=== PATIENT | female | born 1990 | race African-American/Black ===

== ENCOUNTER 2018-07-22 17:31 | Emergency (ER) | payer OTHER, SELFPAY ==
[2018-07-22 17:40] VITALS: BP 128/73; PULSE 66; RESP 13; TEMP 36.9; O2SAT 100
--- NOTE | 2018-07-22 18:05 | ED.ABDPAIN ---
HPI - Abdominal Pain <Francheska Addison PA-C - Last Filed: 07/22/18 22:21> General Chief Complaint: Abdominal Pain Stated Complaint: HAVING PAIN Time Seen by Provider: 07/22/18 18:05 Source: patient Mode of arrival: ambulatory Limitations: no limitations History of Present Illness HPI narrative: This 27-year-old female comes in due to persistent right upper quadrant and flank area pain for the last 6 months that has gradually gotten worse, especially in the last couple of weeks. Since then, it has been waking her up at night with intermittent stabbing and dull pain. Sometimes the pain will radiate into her shoulder and other times even can feel in the thigh. She states that pain is definitely worse after eating and seems better on an empty stomach, for example in the morning. She cannot think of any alleviating features or other exacerbating features. She has had some nausea with this recently, has not had vomiting. She has some intermittent constipation chronically, last bowel movement this morning. That has not been worse recently. She denies any urinary symptoms. She denies fever. She currently has her menses and denies possibility of . She denies any recent travel, exposures or diet changes. She has eaten and drank normal fluids today. She has tried ibuprofen without relief. She states that some point she had a pelvic ultrasound due to concern for possible ovarian problem, states no other testing has been done Related Data Previous Rx's Medication Instructions Recorded ibuprofen 800 mg PO Q8HR PRN 10 Days #30 tab 07/22/18 ondansetron [Zofran ODT] 4 mg PO Q6H PRN #10 tab 07/22/18 Allergies Allergy/AdvReac Type Severity Reaction Status Date / Time No Known Drug Allergies Allergy Verified 07/22/18 20:39 Review of Systems <Francheska Addison PA-C - Last Filed: 07/22/18 22:21> Review of Systems All systems reviewed & are unremarkable except as noted in HPI and below Exam <Francheska Addison PA-C - Last Filed: 07/22/18 22:21> Narrative Exam Narrative: GENERAL APPEARANCE: Patient sitting comfortably, in no distress. HEENT: PERRL, EOMI, no scleral icterus NECK: Supple LUNGS: Clear to auscultation bilaterally. HEART: Rate and rhythm regular, normal S1 and S2, no S3 or S4. I/ systolic ejection murmur heard only at the upper sternal borders with patient supine ABDOMEN: Soft, nondistended, bowel sounds present x 4 quadrants, no masses palpable, there is no splenomegaly. She is exquisitely tender over the right mid to upper quadrant with guarding, no rebound, positive Benson sign. No tenderness over the lower quadrants, left side, or suprapubic area EXTREMITIES: No edema, no cyanosis DERMATOLOGIC: No jaundice or exanthem NEUROLOGIC: Alert and oriented with normal speech and coordination Initial Vital Signs Initial Vital Signs: Vital Signs Temperature 98.4 F 07/22/18 17:40 Pulse Rate 66 07/22/18 17:40 Respiratory Rate 13 07/22/18 17:40 Blood Pressure 128/73 07/22/18 17:40 Pulse Oximetry 100 07/22/18 17:40 <Quentin Arellano DO - Last Filed: 07/23/18 04:10> Initial Vital Signs Initial Vital Signs: Vital Signs Temperature 98.4 F 07/22/18 17:40 Pulse Rate 66 07/22/18 17:40 Respiratory Rate 13 07/22/18 17:40 Blood Pressure 128/73 07/22/18 17:40 Pulse Oximetry 100 07/22/18 17:40 Course <Francheska Addison PA-C - Last Filed: 07/22/18 22:21> Additional Information: Patient does not have any acute findings on her lab work, however does have gallstone on ultrasound and worsening symptoms. She does not want pain or nausea medication and does not appear to need hospitalization this evening, but does need surgical follow-up. I spoke with Dr. Ansari who is implementation project manager and agreed that this is a reasonable plan, advised to have patient call her office 1st thing in the morning so she can be seen quickly for follow-up. Patient agreed to return in the interim if any acutely worsening symptoms and was given prescription for NSAID and Zofran. Also advised her that she has a very in the since having heart murmur that may have been present for a long time, and should follow up on her PCP for this to determine whether chronic or to do any further workup. Orders Ordered: Discontinued Medications Ibuprofen (Advil) 800 mg PO NOW ONE Stop: 07/22/18 19:50 Last Admin: 07/22/18 20:40 Dose: 800 mg Vital Signs - 8 hr 07/22/18 21:19 Pulse Rate 68 Respiratory Rate 16 Blood Pressure 124/79 Pulse Oximetry 100 <Quentin Arellano DO - Last Filed: 07/23/18 04:10> Orders Ordered: Discontinued Medications Ibuprofen (Advil) 800 mg PO NOW ONE Stop: 07/22/18 19:50 Last Admin: 07/22/18 20:40 Dose: 800 mg Vital Signs - 8 hr 07/22/18 21:19 Pulse Rate 68 Respiratory Rate 16 Blood Pressure 124/79 Pulse Oximetry 100 MDM - Abdominal Pain <Francheska Addison PA-C - Last Filed: 07/22/18 22:21> Lab Data Attestation: I reviewed the patient's lab results. Result diagrams: 07/22/18 18:50 07/22/18 18:50 Lab Results 07/22/18 07/22/18 07/22/18 Range/Units 18:50 18:50 19:05 WBC 7.0 (4.5-11.0) X10^3/uL RBC 4.14 (4.0-5.2) X10^6/uL Hgb 12.0 (12.0-16.0) g/dL Hct 35.8 L (36-46) % MCV 86.5 (80-100) fL MCH 29.0 (26-34) PG MCHC 33.5 (30-36) % RDW 13.0 (11.6-14.8) % Plt Count 359 (150-400) X10^3/uL Neut % (Auto) 34.2 L (50-75) % Lymph % (Auto) 57.1 H (25-40) % [place] % (Auto) 6.8 (3-14) % Eos % (Auto) 1.0 L (2-4) % Baso % (Auto) 0.9 (0-2) % Neut # (Auto) 2400 L (6532-6346) /uL Sodium 143 (137-145) mmol/L Potassium 3.7 (3.4-5.1) mmol/L Chloride 103 (98-107) mmol/L Carbon Dioxide 30 (22-32) mmol/L BUN 10 (7-17) mg/dL Creatinine 0.80 (0.52-1.04) mg/dL Estimated GFR > 60.0 (>60) mL/min BUN/Creatinine Ratio 12.5 (6-22) Glucose 73 (70-100) mg/dL Lactate 0.7 (0.7-2.1) mmol/L Calcium 9.2 (8.4-10.2) mg/dL Total Bilirubin 0.5 (0.2-1.3) mg/dL AST 19 (14-36) IU/L ALT 23 (9-52) IU/L Alkaline Phosphatase 69 (38-126) U/L Total Protein 7.2 (6.3-8.2) g/dL Albumin 4.1 (3.5-5.0) g/dL Globulin 3.1 (1.7-4.1) g/dL Albumin/Globulin Ratio 1.3 (1.0-2.8) Lipase 50 (23-300) U/L Point of care testing: Point of Care Testing Test Results Negative Urine Dip Bedside Urine Glucose Negative Bedside Urine Bilirubin - Negative Bedside Urine Ketone - Negative Urine Specific [place] 1.020 Bedside Urine Occult Blood +++ Bedside Urine pH 6.0 Bedside Urine Protein - Negative Bedside Urine Urobilinogen - Negative Bedside Urine Nitrite - Negative Bedside Urine Leukocytes - Negative Esterase Imaging Data US - abdomen: Radiologist's impression: [place] [address] Ultrasound Report Signed Patient: RINKU SURESH EMR#: [id number] : 1990Acct:[id number] Age/Sex: 27 / FDate of Service: 07/22/18 Loc: ED Accession Number: [id number] Procedure: US abdomen complete Ordering Provider: Francheska Addison P.A-C PROCEDURE: US ABDOMEN COMPLETE INDICATIONS: RIGHT FLANK/UPPER QUADRANT PAIN TECHNIQUE: Real-time scanning was performed of the abdominal and retroperitoneal organs, with image documentation. COMPARISON: None. FINDINGS: Liver: Liver is normal in size and homogeneous in echotexture. Gallbladder: 1.4 cm mobile gallstone noted in the gallbladder lumen. Gallbladder wall measures 2 mm. No pericholecystic fluid. No sonographic Benson sign. Biliary ducts: Intrahepatic bile ducts are non-dilated. Extrahepatic bile duct caliber measures 5.1 mm. Normal is 6-7 mm or less in diameter, or 10 mm or less post-cholecystectomy. Pancreas: Visualized portions of the pancreas are sonographically normal. Spleen: Spleen is normal in size and homogeneous in echotexture. Kidneys: Kidneys are normal in size and echotexture. Right kidney measures 11.5 cm long; left kidney measures 11.1 cm long. No hydronephrosis or nephrolithiasis. No solid masses. Aorta: Visualized aorta is normal in caliber at less than 3 cm. Iliacs: Proximal common iliac arteries are normal in caliber at less than 2.5 cm. IVC: Intrahepatic inferior vena cava is patent. Miscellaneous: No free abdominal fluid. IMPRESSION: Cholelithiasis with positive sonographic Benson sign and absence of gallbladder wall thickening or pericholecystic fluid. Early manifestation of cholecystitis cannot be excluded. Dictated by: Serene Hines MD, PhD on 07/22/2018 at 19:31 Approved by: Serene Hines MD, PhD on 07/22/2018 at 19:32 <Quentin Arellano DO - Last Filed: 07/23/18 04:10> Lab Data Lab Results 07/22/18 07/22/18 07/22/18 Range/Units 18:50 18:50 19:05 WBC 7.0 (4.5-11.0) X10^3/uL RBC 4.14 (4.0-5.2) X10^6/uL Hgb 12.0 (12.0-16.0) g/dL Hct 35.8 L (36-46) % MCV 86.5 (80-100) fL MCH 29.0 (26-34) PG MCHC 33.5 (30-36) % RDW 13.0 (11.6-14.8) % Plt Count 359 (150-400) X10^3/uL Neut % (Auto) 34.2 L (50-75) % Lymph % (Auto) 57.1 H (25-40) % [place] % (Auto) 6.8 (3-14) % Eos % (Auto) 1.0 L (2-4) % Baso % (Auto) 0.9 (0-2) % Neut # (Auto) 2400 L (6890-5286) /uL Sodium 143 (137-145) mmol/L Potassium 3.7 (3.4-5.1) mmol/L Chloride 103 (98-107) mmol/L Carbon Dioxide 30 (22-32) mmol/L BUN 10 (7-17) mg/dL Creatinine 0.80 (0.52-1.04) mg/dL Estimated GFR > 60.0 (>60) mL/min BUN/Creatinine Ratio 12.5 (6-22) Glucose 73 (70-100) mg/dL Lactate 0.7 (0.7-2.1) mmol/L Calcium 9.2 (8.4-10.2) mg/dL Total Bilirubin 0.5 (0.2-1.3) mg/dL AST 19 (14-36) IU/L ALT 23 (9-52) IU/L Alkaline Phosphatase 69 (38-126) U/L Total Protein 7.2 (6.3-8.2) g/dL Albumin 4.1 (3.5-5.0) g/dL Globulin 3.1 (1.7-4.1) g/dL Albumin/Globulin Ratio 1.3 (1.0-2.8) Lipase 50 (23-300) U/L Point of care testing: Point of Care Testing Test Results Negative Urine Dip Bedside Urine Glucose Negative Bedside Urine Bilirubin - Negative Bedside Urine Ketone - Negative Urine Specific [place] 1.020 Bedside Urine Occult Blood +++ Bedside Urine pH 6.0 Bedside Urine Protein - Negative Bedside Urine Urobilinogen - Negative Bedside Urine Nitrite - Negative Bedside Urine Leukocytes - Negative Esterase Discharge Plan Departure Patient Disposition: Home Clinical Impression: Gallstone Discharge Date/Time: 07/22/18 21:19 Interventions: ED Discharge Assessment Last Done: 07/22/18 21:19 Instructions: DI for Gallstones Activity Restrictions/Additional Instructions: You should return immediately as we talked about if you have acutely worsening symptoms, or new symptoms such as protracted vomiting. I have sent in prescriptions for ibuprofen for pain as well as a medication called Zofran for nausea. Please take these as needed. Please drink clear fluids, and eat small, bland meals more frequently. Avoid greasy and fatty foods altogether. I spoke with our implementation project manager surgeon Dr. Ansari regarding your symptoms and ultrasound findings and she agrees that you can be seen there as an outpatient and then they can get you set up for surgery right away if needed. Please call her office at the number on this paperwork 1st thing in the morning. Let them know that you were seen in the emergency room this evening and that we spoke with her and that she advised you to call and be seen right away to evaluate for surgery. Prescriptions: New ibuprofen 800 mg tablet 800 mg PO Q8HR PRN (Reason: Abdominal Pain) 10 Days Qty: 30 RF: 0 ondansetron [Zofran ODT] 4 mg tablet,disintegrating 4 mg PO Q6H PRN (Reason: Nausea) Qty: 10 RF: 0 Referrals: [facility] [Provider Group] Manju Ansari MD [Physician] - <Quentin Arellano DO - Last Filed: 07/23/18 04:10> Cosign ED Attending Solaature Attestation: I was immediately available in the department for consultation. Documentation has been reviewed. I agree with assessment and plan.
--- NOTE | 2018-07-22 18:23 | ED_ITS ---
HPI - Abdominal Pain <Francheska Addison PA-C - Last Filed: 07/22/18 22:21> General Chief Complaint: Abdominal Pain Stated Complaint: HAVING PAIN Time Seen by Provider: 07/22/18 18:05 Source: patient Mode of arrival: ambulatory Limitations: no limitations History of Present Illness HPI narrative: This 27-year-old female comes in due to persistent right upper quadrant and flank area pain for the last 6 months that has gradually gotten worse, especially in the last couple of weeks. Since then, it has been waking her up at night with intermittent stabbing and dull pain. Sometimes the pain will radiate into her shoulder and other times even can feel in the thigh. She states that pain is definitely worse after eating and seems better on an empty stomach, for example in the morning. She cannot think of any alleviating features or other exacerbating features. She has had some nausea with this recently, has not had vomiting. She has some intermittent constipation chronically, last bowel movement this morning. That has not been worse recently. She denies any urinary symptoms. She denies fever. She currently has her menses and denies possibility of . She denies any recent travel, exposures or diet changes. She has eaten and drank normal fluids today. She has tried ibuprofen without relief. She states that some point she had a pelvic ultrasound due to concern for possible ovarian problem, states no other testing has been done Related Data Previous Rx's Medication Instructions Recorded ibuprofen 800 mg PO Q8HR PRN 10 Days #30 tab 07/22/18 ondansetron [Zofran ODT] 4 mg PO Q6H PRN #10 tab 07/22/18 Allergies Allergy/AdvReac Type Severity Reaction Status Date / Time No Known Drug Allergies Allergy Verified 07/22/18 20:39 Review of Systems <Francheska Addison PA-C - Last Filed: 07/22/18 22:21> Review of Systems All systems reviewed & are unremarkable except as noted in HPI and below Exam <Francheska Addison PA-C - Last Filed: 07/22/18 22:21> Narrative Exam Narrative: GENERAL APPEARANCE: Patient sitting comfortably, in no distress. HEENT: PERRL, EOMI, no scleral icterus NECK: Supple LUNGS: Clear to auscultation bilaterally. HEART: Rate and rhythm regular, normal S1 and S2, no S3 or S4. I/ systolic ejection murmur heard only at the upper sternal borders with patient supine ABDOMEN: Soft, nondistended, bowel sounds present x 4 quadrants, no masses palpable, there is no splenomegaly. She is exquisitely tender over the right mid to upper quadrant with guarding, no rebound, positive Benson sign. No tenderness over the lower quadrants, left side, or suprapubic area EXTREMITIES: No edema, no cyanosis DERMATOLOGIC: No jaundice or exanthem NEUROLOGIC: Alert and oriented with normal speech and coordination Initial Vital Signs Initial Vital Signs: Vital Signs Temperature 98.4 F 07/22/18 17:40 Pulse Rate 66 07/22/18 17:40 Respiratory Rate 13 07/22/18 17:40 Blood Pressure 128/73 07/22/18 17:40 Pulse Oximetry 100 07/22/18 17:40 <Quentin Arellano DO - Last Filed: 07/23/18 04:10> Initial Vital Signs Initial Vital Signs: Vital Signs Temperature 98.4 F 07/22/18 17:40 Pulse Rate 66 07/22/18 17:40 Respiratory Rate 13 07/22/18 17:40 Blood Pressure 128/73 07/22/18 17:40 Pulse Oximetry 100 07/22/18 17:40 Course <Francheska Addison PA-C - Last Filed: 07/22/18 22:21> Additional Information: Patient does not have any acute findings on her lab work , however does have gallstone on ultrasound and worsening symptoms. She does not want pain or nausea medication and does not appear to need hospitalization this evening, but does need surgical follow-up. I spoke with Dr. Ansari who is patient ombudsperson and agreed that this is a reasonable plan, advised to have patient call her office 1st thing in the morning so she can be seen quickly for follow-up. Patient agreed to return in the interim if any acutely worsening symptoms and was given prescription for NSAID and Zofran. Also advised her that she has a very in the since having heart murmur that may have been present for a long time , and should follow up on her PCP for this to determine whether chronic or to do any further workup. Orders Ordered: Discontinued Medications Ibuprofen (Advil) 800 mg PO NOW ONE Stop: 07/22/18 19:50 Last Admin: 07/22/18 20:40 Dose: 800 mg Vital Signs - 8 hr 07/22/18 21:19 Pulse Rate 68 Respiratory Rate 16 Blood Pressure 124/79 Pulse Oximetry 100 <Quentin Arellano DO - Last Filed: 07/23/18 04:10> Orders Ordered: Discontinued Medications Ibuprofen (Advil) 800 mg PO NOW ONE Stop: 07/22/18 19:50 Last Admin: 07/22/18 20:40 Dose: 800 mg Vital Signs - 8 hr 07/22/18 21:19 Pulse Rate 68 Respiratory Rate 16 Blood Pressure 124/79 Pulse Oximetry 100 MDM - Abdominal Pain <Francheska Addison PA-C - Last Filed: 07/22/18 22:21> Lab Data Attestation: I reviewed the patient's lab results. Result diagrams: 07/22/18 18:50 07/22/18 18:50 Lab Results 07/22/18 07/22/18 07/22/18 Range/Units 18:50 18:50 19:05 WBC 7.0 (4.5-11.0) X10^3/uL RBC 4.14 (4.0-5.2) X10^6/uL Hgb 12.0 (12.0-16.0) g/dL Hct 35.8 L (36-46) % MCV 86.5 (80-100) fL MCH 29.0 (26-34) PG MCHC 33.5 (30-36) % RDW 13.0 (11.6-14.8) % Plt Count 359 (150-400) X10^3/uL Neut % (Auto) 34.2 L (50-75) % Lymph % (Auto) 57.1 H (25-40) % [place] % (Auto) 6.8 (3-14) % Eos % (Auto) 1.0 L (2-4) % Baso % (Auto) 0.9 (0-2) % Neut # (Auto) 2400 L (3986-7582) /uL Sodium 143 (137-145) mmol/L Potassium 3.7 (3.4-5.1) mmol/L Chloride 103 (98-107) mmol/L Carbon Dioxide 30 (22-32) mmol/L BUN 10 (7-17) mg/dL Creatinine 0.80 (0.52-1.04) mg/dL Estimated GFR > 60.0 (>60) mL/min BUN/Creatinine Ratio 12.5 (6-22) Glucose 73 (70-100) mg/dL Lactate 0.7 (0.7-2.1) mmol/L Calcium 9.2 (8.4-10.2) mg/dL Total Bilirubin 0.5 (0.2-1.3) mg/dL AST 19 (14-36) IU/L ALT 23 (9-52) IU/L Alkaline Phosphatase 69 (38-126) U/L Total Protein 7.2 (6.3-8.2) g/dL Albumin 4.1 (3.5-5.0) g/dL Globulin 3.1 (1.7-4.1) g/dL Albumin/Globulin Ratio 1.3 (1.0-2.8) Lipase 50 (23-300) U/L Point of care testing: Point of Care Testing Test Results Negative Urine Dip Bedside Urine Glucose Negative Bedside Urine Bilirubin - Negative Bedside Urine Ketone - Negative Urine Specific [place] 1.020 Bedside Urine Occult Blood +++ Bedside Urine pH 6.0 Bedside Urine Protein - Negative Bedside Urine Urobilinogen - Negative Bedside Urine Nitrite - Negative Bedside Urine Leukocytes - Negative Esterase Imaging Data US - abdomen: Radiologist's impression: [place] [address] Ultrasound Report Signed Patient: RINKU SURESH EMR#: [id number] : 1990Acct:[id number] Age/Sex: 27 / FDate of Service: 07/22/18 Loc: ED Accession Number: [id number] Procedure: US abdomen complete Ordering Provider: Francheska Addison P.A-C PROCEDURE: US ABDOMEN COMPLETE INDICATIONS: RIGHT FLANK/UPPER QUADRANT PAIN TECHNIQUE: Real-time scanning was performed of the abdominal and retroperitoneal organs, with image documentation. COMPARISON: None. FINDINGS: Liver: Liver is normal in size and homogeneous in echotexture. Gallbladder: 1.4 cm mobile gallstone noted in the gallbladder lumen. Gallbladder wall measures 2 mm. No pericholecystic fluid. No sonographic Benson sign. Biliary ducts: Intrahepatic bile ducts are non-dilated. Extrahepatic bile duct caliber measures 5.1 mm. Normal is 6-7 mm or less in diameter, or 10 mm or less post-cholecystectomy. Pancreas: Visualized portions of the pancreas are sonographically normal. Spleen: Spleen is normal in size and homogeneous in echotexture. Kidneys: Kidneys are normal in size and echotexture. Right kidney measures 11.5 cm long; left kidney measures 11.1 cm long. No hydronephrosis or nephrolithiasis. No solid masses. Aorta: Visualized aorta is normal in caliber at less than 3 cm. Iliacs: Proximal common iliac arteries are normal in caliber at less than 2.5 cm. IVC: Intrahepatic inferior vena cava is patent. Miscellaneous: No free abdominal fluid. IMPRESSION: Cholelithiasis with positive sonographic Benson sign and absence of gallbladder wall thickening or pericholecystic fluid. Early manifestation of cholecystitis cannot be excluded. Dictated by: Serene Hines MD, PhD on 07/22/2018 at 19:31 Approved by: Serene Hines MD, PhD on 07/22/2018 at 19:32 <Quentin Arellano DO - Last Filed: 07/23/18 04:10> Lab Data Lab Results 07/22/18 07/22/18 07/22/18 Range/Units 18:50 18:50 19:05 WBC 7.0 (4.5-11.0) X10^3/uL RBC 4.14 (4.0-5.2) X10^6/uL Hgb 12.0 (12.0-16.0) g/dL Hct 35.8 L (36-46) % MCV 86.5 (80-100) fL MCH 29.0 (26-34) PG MCHC 33.5 (30-36) % RDW 13.0 (11.6-14.8) % Plt Count 359 (150-400) X10^3/uL Neut % (Auto) 34.2 L (50-75) % Lymph % (Auto) 57.1 H (25-40) % [place] % (Auto) 6.8 (3-14) % Eos % (Auto) 1.0 L (2-4) % Baso % (Auto) 0.9 (0-2) % Neut # (Auto) 2400 L (1382-7292) /uL Sodium 143 (137-145) mmol/L Potassium 3.7 (3.4-5.1) mmol/L Chloride 103 (98-107) mmol/L Carbon Dioxide 30 (22-32) mmol/L BUN 10 (7-17) mg/dL Creatinine 0.80 (0.52-1.04) mg/dL Estimated GFR > 60.0 (>60) mL/min BUN/Creatinine Ratio 12.5 (6-22) Glucose 73 (70-100) mg/dL Lactate 0.7 (0.7-2.1) mmol/L Calcium 9.2 (8.4-10.2) mg/dL Total Bilirubin 0.5 (0.2-1.3) mg/dL AST 19 (14-36) IU/L ALT 23 (9-52) IU/L Alkaline Phosphatase 69 (38-126) U/L Total Protein 7.2 (6.3-8.2) g/dL Albumin 4.1 (3.5-5.0) g/dL Globulin 3.1 (1.7-4.1) g/dL Albumin/Globulin Ratio 1.3 (1.0-2.8) Lipase 50 (23-300) U/L Point of care testing: Point of Care Testing Test Results Negative Urine Dip Bedside Urine Glucose Negative Bedside Urine Bilirubin - Negative Bedside Urine Ketone - Negative Urine Specific [place] 1.020 Bedside Urine Occult Blood +++ Bedside Urine pH 6.0 Bedside Urine Protein - Negative Bedside Urine Urobilinogen - Negative Bedside Urine Nitrite - Negative Bedside Urine Leukocytes - Negative Esterase Discharge Plan Departure Patient Disposition: Home Clinical Impression: Gallstone Discharge Date/Time: 07/22/18 21:19 Interventions: ED Discharge Assessment Last Done: 07/22/18 21:19 Instructions: DI for Gallstones Activity Restrictions/Additional Instructions: You should return immediately as we talked about if you have acutely worsening symptoms, or new symptoms such as protracted vomiting. I have sent in prescriptions for ibuprofen for pain as well as a medication called Zofran for nausea. Please take these as needed. Please drink clear fluids, and eat small , bland meals more frequently. Avoid greasy and fatty foods altogether. I spoke with our patient ombudsperson surgeon Dr. Ansari regarding your symptoms and ultrasound findings and she agrees that you can be seen there as an outpatient and then they can get you set up for surgery right away if needed. Please call her office at the number on this paperwork 1st thing in the morning. Let them know that you were seen in the emergency room this evening and that we spoke with her and that she advised you to call and be seen right away to evaluate for surgery. Prescriptions: New ibuprofen 800 mg tablet 800 mg PO Q8HR PRN (Reason: Abdominal Pain) 10 Days Qty: 30 RF: 0 ondansetron [Zofran ODT] 4 mg tablet,disintegrating 4 mg PO Q6H PRN (Reason: Nausea) Qty: 10 RF: 0 Referrals: [facility] [Provider Group] Manju Ansari MD [Physician] - <Quentin Arellano DO - Last Filed: 07/23/18 04:10> Cosign ED Attending Solaature Attestation: I was immediately available in the department for consultation. Documentation has been reviewed. I agree with assessment and plan.
--- NOTE | 2018-07-22 18:39 | DI.US.S_ITS ---
PROCEDURE: US ABDOMEN COMPLETE INDICATIONS: RIGHT FLANK/UPPER QUADRANT PAIN TECHNIQUE: Real-time scanning was performed of the abdominal and retroperitoneal organs, with image documentation. COMPARISON: None. FINDINGS: Liver: Liver is normal in size and homogeneous in echotexture. Gallbladder: 1.4 cm mobile gallstone noted in the gallbladder lumen. Gallbladder wall measures 2 mm. No pericholecystic fluid. No sonographic Benson sign. Biliary ducts: Intrahepatic bile ducts are non-dilated. Extrahepatic bile duct caliber measures 5.1 mm. Normal is 6-7 mm or less in diameter, or 10 mm or less post-cholecystectomy. Pancreas: Visualized portions of the pancreas are sonographically normal. Spleen: Spleen is normal in size and homogeneous in echotexture. Kidneys: Kidneys are normal in size and echotexture. Right kidney measures 11.5 cm long; left kidney measures 11.1 cm long. No hydronephrosis or nephrolithiasis. No solid masses. Aorta: Visualized aorta is normal in caliber at less than 3 cm. Iliacs: Proximal common iliac arteries are normal in caliber at less than 2.5 cm. IVC: Intrahepatic inferior vena cava is patent. Miscellaneous: No free abdominal fluid. IMPRESSION: Cholelithiasis with positive sonographic Benson sign and absence of gallbladder wall thickening or pericholecystic fluid. Early manifestation of cholecystitis cannot be excluded. Dictated by: Serene Hines MD, PhD on 07/22/2018 at 19:31 Approved by: Serene Hines MD, PhD on 07/22/2018 at 19:32
[2018-07-22 18:58] VITALS: BP 131/71; PULSE 54; RESP 15; O2SAT 100
[2018-07-22 19:05] LABS: Add Manual Diff / Slide Review NO; Basophils Percent Auto 0.9 % (0-2); Hematocrit 35.8 % (36-46); Lymphocytes Percent Auto 57.1 % (25-40); Mean Corpuscular HGB Conc 33.5 % (30-36); Mean Corpuscular Volume 86.5 fL (80-100); Monocytes Percent Auto 6.8 % (3-14); Neutrophils Absolute Auto 2400 /uL (3000-5900); Neutrophils Percent Auto 34.2 % (50-75); Platelet Count 359 X10^3/uL (150-400); Red Blood Cell Count 4.14 X10^6/uL (4.0-5.2)
[2018-07-22 19:16] LABS: Alanine Aminotransferase 23 IU/L (9-52); Albumin 4.1 g/dL (3.5-5.0); Albumin Globulin Ratio 1.3 (1.0-2.8); Alkaline Phosphatase 69 U/L (38-126); Aspartate Aminotransferase 19 IU/L (14-36); BUN Creatinine Ratio 12.5 (6-22); Bilirubin Total 0.5 mg/dL (0.2-1.3); Blood Urea Nitrogen 10 mg/dL (7-17); Calcium 9.2 mg/dL (8.4-10.2); Carbon Dioxide 30 mmol/L (22-32); Chloride 103 mmol/L (98-107); Estimated Glomerular Filt Rate > 60.0 mL/min (>60); Globulin 3.1 g/dL (1.7-4.1); Glucose 73 mg/dL (70-100); HEMOLYSIS < 15 (0-50); Lipase 50 U/L (23-300); Potassium 3.7 mmol/L (3.4-5.1); Sodium 143 mmol/L (137-145); Total Protein 7.2 g/dL (6.3-8.2)
[2018-07-22 19:26] LABS: Lactate (Lactic Acid) 0.7 mmol/L (0.7-2.1)
[2018-07-22] MEDS: IBUPROFEN 400 MG TABLET 800 MG PO (20:40)
[2018-07-22 21:19] VITALS: BP 124/79; PULSE 68; RESP 16; O2SAT 100
== END 2018-07-22 21:19 | disposition home or self-care (01) ==
PROVIDERS: Emergency Provider Internal Medicine
DX: K80.20 Calculus of gallbladder without cholecystitis without obstruction (principal)
CPT/HCPCS: 36591; 76700; 80053; 81003; 81025; 83605; 83690; 85025; 99282; 99284

== ENCOUNTER 2018-07-24 12:04 | Day surgery (SDC) | payer OTHER, SELFPAY ==
[2018-07-24] VITALS (13 sets, daily range): BP systolic 100–131; BP diastolic 56–80; PULSE 52–84; RESP 12–18; TEMP 36.3–36.6; O2SAT 94–100; BMI 29.7
--- NOTE | 2018-07-24 | PATH_ITS ---
[facility] Accession Number: [id number] . 01 Material submitted: . GALLBLADDER . 02 Diagnosis: Gallbladder, Cholecystectomy: Gallbladder with cholelithiasis. No evidence of dysplasia or malignancy. MRV/07/28/2018 . 02 Electronically signed: . Allison Guevara MD, Pathologist NPI- [id number] . 01 Gross description: . Received in formalin, labeled gallbladder, is an intact gallbladder (length-8.6 cm, diameter-3.2 cm) with green smooth and shiny serosa and a patent cystic duct. No lymph nodes are identified. The lumen contains dark green viscous bile and one paniagua yellow solid firm oblong calculus (1.2 x 0.8 x 0.6 cm) with a clear crystalline cut surface. The mucosa is green and flat. The wall is up to 0.1 cm thick. No nodules, masses or lesions are identified. Section code: (A1) cystic duct resection margin and two serial sections from the body; (A2) two longitudinal sections from the fundus. ([id number]) /[facility] . 02 Pathologist provided ICD-10: K80.70 . 02 CPT . 077474 Specimen Comment: A duplicate report has been generated due to demographic updates. Performed at: 01 [facility] [address], [place], [place] [id number] MD Dorian Guidry MD Phone: [phone] Performed at: [address] [facility] [address] [place], [place] [id number] MD Uriel Garcia MD Phone: [phone]
--- NOTE | 2018-07-24 12:55 | PM.PREOP ---
Pre-operative Note Interval Note Pre-op Check: Yes History & Physical Reviewed by Physician and Yes Exam Performed Changes: Yes H&P completed within 30 days and has changed as indicated here:: No mesh was used for her umbilical hernia repair at [facility]
[2018-07-24] MEDS: CEFAZOLIN 2 GM/100 ML FROZ.PIGGY IV (13:30)
--- NOTE | 2018-07-24 13:46 | SUR.OPER ---
Supine on padded OR bed, head on pillow, arms secured on padded arm boards at <90 degrees abduction, legs uncrossed, safety belt at thigh, tape over blanket over lower legs.
[2018-07-24] MEDS: BUPIVACAINE 0.5% (PF) VIAL 30 ML INJ (14:00)
--- NOTE | 2018-07-24 15:13 | PM.OP.1 ---
Operative Date/Time/Diagnoses Date of procedure: 07/24/18 Time of procedure: 12:13 Pre-op diagnosis: Cholelithiasis cholecystitis Post-op diagnosis: same Procedure & Clinicians Procedure: laparoscopic cholecystectomy. Same procedure as scheduled: No ( Attempted cholangiogram but duct was too small to catheterize) Indications: symptomatic gallbladder disease Surgeon: Nicolás Francis Click Yes if Unassisted: Yes Anesthesia Type: General Operative Notes Findings: mild inflammation of the gallbladder. Stones in the gallbladder. Duct was too small to cannulate. Closure Type: primary Specimen(s): other ( Gallbladder) Estimated Blood Loss (mL): 10 Blood products transfused: none Procedure in detail: The patient was placed supine on the operating room table and underwent general endotracheal anesthesia. There prepped and draped in the usual fashion. Local anesthetic was infiltrated beneath the umbilicus and an incision made in the infraumbilical fold through an old scar. It was carried down to the level of the peritoneum which was opened under direct vision. Stay suture of 0 Polysorb were placed in the fascia. An Kirk cannula was inserted and the abdomen was insufflated. The patient was repositioned and local anesthetic was infiltrated again beneath the right costal margin and 3 small 5 mm ports were inserted. The gallbladder was identified and grasped and elevated. dissection was began near its end. A ductal structure singular nature leading to the gallbladder and appearing to go to the common bile duct was identified and from surrounding structures. Clip was placed at its junction with the gallbladder and then made a skip in the duct. The opening was tiny. I attempted to cannulated with the cholangiocatheter and it was just too small. Three clips were placed on the duct and was divided leaving those 3 on the patient. I was no where near the common bile duct with these 3 clips. Further dissection revealed the artery going to the gallbladder which was from surrounding structures. Three clips were placed across it and it was divided leaving 2 in the patient. The gallbladder was then dissected from its bed in the liver and detached. It was removed without difficulty through the umbilical port. The right upper quadrant was irrigated and suctioned free of fluid. There was no bile leakage and no bleeding. The patient had some minimal adhesions of omentum to the anterior abdominal wall near the umbilical port and in the pelvis and these were taken down using cautery and scissors. Fluid was suctioned from the pelvis ports were all removed. Two 0 Maxon sutures were used to close the fascia at the umbilicus and the 1 stay stitch of 0 Polysorb was tied. The wounds were all irrigated and 4 0 Vicryl subcuticular stitches were used to close the skin. Mastisol Steri-Strips Band-Aids were applied. Patient was awakened extubated and taken to the recovery room good condition. Complications: none Condition: stable Disposition: PACU Plan for aftercare: Follow up with the office
[2018-07-24] MEDS: fentaNYL 100 MCG/2 ML INJ 50 MCG IV ×2 (15:25→15:30)
[2018-07-24] MEDS: HYDROMORPHONE 2 MG INJ 0.5 MG IV ×2 (15:50→15:55)
[2018-07-24] MEDS: LACTATED RINGERS 1,000 ML 100 ML IV (16:05)
[2018-07-24] MEDS: KETOROLAC 30 MG/ML VIAL IV (16:24)
[2018-07-24] MEDS: HYDROCODONE/ACET 5/325 TABLET 1 TAB PO (16:28)
== END 2018-07-24 17:05 ==
PROVIDERS: Visit Provider Specialist
PROC: 0FT44ZZ Resection of Gallbladder, Percutaneous Endoscopic Approach (ICD-10-PCS; CPT 47562; principal; 2018-07-24 13:15)
DX: K80.12 Calculus of gallbladder with acute and chronic cholecystitis without obstruction (principal)
CPT/HCPCS: 47562; 88304; J0690; J1100; J1170; J1885; J2405; J2704; J3010

== ENCOUNTER 2018-10-03 18:00 | Emergency (ER) | payer OTHER, SELFPAY ==
[2018-10-03 18:04] VITALS: BP 140/93; PULSE 60; RESP 12; TEMP 36.7; O2SAT 100
--- NOTE | 2018-10-03 18:23 | ED.URI ---
HPI - URI/Sore Throat General Chief Complaint: Upper Respiratory Symptoms Stated Complaint: feels like something is stuck in throat Time Seen by Provider: 10/03/18 18:16 Source: patient Mode of arrival: ambulatory Limitations: no limitations History of Present Illness HPI Narrative: Otherwise healthy 27-year-old female here for evaluation a sore throat, problems speaking, sinus congestion. No fevers. No problems breathing. States has been going on for the past day or so. She has not tried anything for prior to arrival. Related Data Allergies Allergy/AdvReac Type Severity Reaction Status Date / Time No Known Drug Allergies Allergy Verified 07/24/18 13:17 Review of Systems Constitutional Denies fever(s) and Reports headache(s) Eyes Denies change in vision and Denies diplopia ENT Ears, Nose, Mouth, and Throat: Denies vertigo, Denies dizziness, Denies dry mouth, Denies facial pain, Reports headache(s), Denies hearing loss, Denies lip swelling, Reports neck pain, Denies disequilibrium, Reports post nasal drip, Reports sore throat, Denies throat swelling and Denies tongue swelling Cardiovascular Denies chest pain and Denies dyspnea Respiratory Denies cough and Denies dyspnea Gastrointestinal Gastrointestinal: Denies nausea and Denies vomiting Genitourinary Denies dysuria Musculoskeletal Reports neck pain Integumentary/Breasts Denies rash Neurologic Denies vertigo, Denies dizziness, Reports headache(s) and Denies disequilibrium Allergic/Immunologic Denies lip swelling, Denies throat swelling and Denies tongue swelling PFSH Medical History Healthy adult (Acute) Surgical History History of (Chronic) History of umbilical hernia repair (Chronic) Family History Father Hypertension Mother Gallstones Grandmother Stroke Social History marital status: household members: spouse, family and children occupational status: employed Smoking Status: Never smoker Exam Initial Vital Signs Initial Vital Signs: Vital Signs Temperature 98.0 F 10/03/18 18:04 Pulse Rate 60 10/03/18 18:04 Respiratory Rate 12 10/03/18 18:04 Blood Pressure 140/93 H 10/03/18 18:04 Pulse Oximetry 100 10/03/18 18:04 Const General: cooperative, well developed, well groomed and No acute distress Orientation: alert and awake HENMT Head: normal to inspection and normocephalic Ears: other (Tympanic membrane bulging bilateral without erythema) Mouth: oral mucosae normal, tongue normal, oropharynx normal and moist mucous membranes Teeth and gingiva: dentition normal Throat: posterior oropharynx normal, tonsils normal, uvula midline and uvula not displaced Neck Lymphatic: lymphadenopathy (Bilateral anterior and right-sided posterior cervical) Resp Effort & Inspection: normal respiratory effort Auscultation: clear to auscultation bilaterally Cardio Rate: regular rate Rhythm: regular rhythm Skin Lesions: no lesions Rashes: no rashes Neuro General: alert, awake and oriented x3 Extrem General: normal to inspection and capillary refill normal Psych Appearance: grossly normal and well kempt Course Orders Ordered: Discontinued Medications Dexamethasone (Decadron) 10 mg IV NOW ONE Stop: 10/03/18 18:42 Last Admin: 10/03/18 18:57 Dose: 10 mg Sodium Chloride (Normal Saline 0.9%) 1,000 mls @ 1,000 mls/hr IV BOLUS ONE Stop: 10/03/18 19:40 Last Infusion: 10/03/18 20:23 Dose: 1,000 mls/hr Admin: 10/03/18 18:58 Dose: 1,000 mls/hr Vital Signs - 8 hr 10/03/18 18:04 10/03/18 20:40 Temperature 98.0 F Pulse Rate 60 61 Respiratory Rate 12 14 Blood Pressure 140/93 H 138/90 Pulse Oximetry 100 99 MDM - URI/Sore Throat Lab Data Lab Results 10/03/18 Range/Units Unknown Monoscreen Negative (Negative) Point of Care Testing Rapid Strep A Negative MDM Narrative Medical decision making narrative: Patient not in any respiratory distress. Is tolerating oral secretions. Strep and mono test were negative. Does have sinus congestion with bulging tympanic membranes bilaterally consistent with upper respiratory infection. I do suspect a she has a postnasal drip component also laryngitis. No indication for antibiotics. She stated that she was feeling better after the steroids of fluids here in the ER. Will hold on further workup for now. She was given return precautions. She expressed understanding and agreement with plan. Discharge Plan Departure Patient Disposition: Home Clinical Impression: Upper respiratory infection, Pharyngitis, Laryngitis Discharge Date/Time: 10/03/18 20:41 Interventions: ED Discharge Assessment Last Done: 10/03/18 20:40 Instructions: Sore Throat, DI for Laryngitis Activity Restrictions/Additional Instructions: Recommend you start taking an [id number] antihistamine such as Claritin or Luly or Zyrtec. Make sure you increase your fluid intake. Call your primary care doctor for follow-up. Return to the emergency department for any new or worsening symptoms
[2018-10-03] MEDS: DEXAMETHASONE 10 MG/ML VIAL IV (18:57)
[2018-10-03] MEDS: SODIUM CHLORIDE 0.9% 1,000 ML 1000 ML IV (18:58)
[2018-10-03 19:16] LABS: Monotest Negative (Negative)
[2018-10-03 20:40] VITALS: BP 138/90; PULSE 61; RESP 14; O2SAT 99
== END 2018-10-03 20:41 | disposition home or self-care (01) ==
PROVIDERS: Emergency Provider Emergency Medicine
DX: J06.9 Acute upper respiratory infection, unspecified (principal); J02.9 Acute pharyngitis, unspecified; J04.0 Acute laryngitis
CPT/HCPCS: 36591; 86318; 87880; 96361; 96374; 99283; 99284; J1100

== ENCOUNTER 2019-03-10 08:01 | Observation (INO) | payer OTHER, SELFPAY ==
[2019-03-10] VITALS (22 sets, daily range): BP systolic 97–135; BP diastolic 44–70; PULSE 53–75; RESP 15–22; TEMP 36.4–37.4; O2SAT 98–100; BMI 29.0
--- NOTE | 2019-03-10 | PATH_ITS ---
[facility] Accession Number: [id number] . 01 Material submitted: . appendix - APPENDIX . 02 Diagnosis: Appendix, Laparoscopic Appendectomy: Appendix with obliteration of the tip and neutrophils present within the lamina propria, suggestive of evolving appendicitis. Negative for atypia or malignancy. MRV/03/13/2019 . 02 Electronically signed: . Veronica Altamirano MD, Pathologist NPI- [id number] . 01 Gross description: . Received in formalin, labeled appendix, is an intact appendix (length-6.5 cm, diameter-1.0 cm) with pale cannon-olson smooth shiny serosa and attached mesoappendix (up to 1.8 cm thick). The resection margin is received stapled. The lumen contains pale olson solid soft material. The wall is up to 0.5 cm thick. No nodules, masses or lesions are identified. The resection margin is inked black. Section code: (A1-A4) appendix, serially sectioned and entirely submitted proximal to distal with a resection margin en face and the tip bivalved. ([id number]) /[facility]V . 02 Pathologist provided ICD-10: K35.80 . 02 CPT . 618199 Performed at: 01 [facility] [address], [place], [place] [id number] MD Dorian Guidry MD Phone: [phone] Performed at: 02 [facility] [address] [place], [place] [id number] MD Allison Guevara MD Phone: [phone]
--- NOTE | 2019-03-10 08:17 | ED.ABDPAIN ---
HPI - Abdominal Pain General Chief Complaint: Abdominal Pain Stated Complaint: PAIN IN LOWER RIGHT ABDOMEN Time Seen by Provider: 03/10/19 08:01 Source: patient Mode of arrival: ambulatory Limitations: no limitations History of Present Illness HPI narrative: 28F nonsmoker presents with a chief complaint of gradually worsening right lower quadrant pain for the past 4 days. She states it has been gradually worsening and has both periumbilical and right lower quadrant. She has a decreased appetite and subjective fever. She denies nausea or vomiting. She denies vaginal bleeding or discharge. She has had some dysuria and frequency. Her last period was 3 or 4 days ago and normal MD complaint: abdominal pain Onset (ago): day(s) Pain Consistency: constant Location: RLQ Severity: moderate Quality: cramping and aching Migration to: no migration Relieving factors: rest Exacerbating factors: movement Associated symptoms: nausea and fever Related Data Home Medications Medication Instructions Recorded Confirmed No Known Home Medications 03/10/19 03/10/19 Allergies Allergy/AdvReac Type Severity Reaction Status Date / Time No Known Drug Allergies Allergy Verified 03/10/19 15:31 Review of Systems Constitutional Denies chills, Denies fever(s), Denies lethargy and Denies weakness Eyes Denies change in vision, Denies eye discharge, Denies irritation and Denies loss of vision ENT Ears, Nose, Mouth, and Throat: Denies change in voice, Denies neck pain and Denies sore throat Cardiovascular Denies chest pain, Denies irregular heart rhythm, Denies lightheadedness, Denies palpitations, Denies dyspnea, Denies dyspnea on exertion and Denies orthopnea Respiratory Denies cough, Denies dyspnea, Denies dyspnea on exertion and Denies wheezing Gastrointestinal Gastrointestinal: Reports abdominal pain, Denies change in bowel habits, Denies diarrhea, Reports nausea and Denies vomiting Genitourinary Denies hematuria, Denies flank pain, Denies urinary incontinence and Denies urinary urgency Musculoskeletal Denies neck pain Integumentary/Breasts Denies pruritus, Denies erythema, Denies rash and Denies wounds Neurologic Denies confusion, Denies loss of vision and Denies weakness Psychiatric Denies anxiety, Denies confusion, Denies depression, Denies homicidal ideation and Denies suicidal ideation Endocrine Denies palpitations Hematologic/Lymphatic Denies easy bruising Allergic/Immunologic Denies wheezing [facility] Medical History Healthy adult (Acute) Surgical History History of (Chronic) History of umbilical hernia repair (Chronic) Family History Father Hypertension Mother Gallstones Grandmother Stroke Social History marital status: household members: spouse, family and children occupational status: employed Smoking Status: Never smoker Family History Father Hypertension Mother Gallstones Grandmother Stroke Social History marital status: household members: significant other, family and children occupational status: employed Smoking Status: Never smoker Exam Narrative Exam Narrative: GENERAL: 28-year-old female resting comfortably, sitting very still and rubbing her right lower quadrant HEAD: Atraumatic. Normocephalic. No temporal or scalp tenderness. EYES: Pupils equal round and reactive. Extraocular motions intact. No scleral icterus. No injection or drainage. ENT: Nose without bleeding, purulent drainage or septal hematoma. Throat without erythema, tonsillar hypertrophy or exudate. Uvula midline. Airway patent. NECK: Trachea midline. No JVD or lymphadenopathy. Supple, nontender, no meningeal signs. CARDIOVASCULAR: Regular rate and rhythm without murmurs, gallops, or rubs. RESPIRATORY: Clear to auscultation. Breath sounds equal bilaterally. No wheezes, rales, or rhonchi. Positive psoas, Rovsing's EXTREMITIES: No clubbing, cyanosis, or edema. No joint tenderness, effusion, or edema noted. BACK: Nontender without deformity or crepitance. No flank tenderness. NEURO: AOx3. SKIN: No rash or erythema. Initial Vital Signs Initial Vital Signs: Vital Signs Temperature 98.3 F 03/10/19 08:12 Pulse Rate 59 L 03/10/19 08:12 Respiratory Rate 16 03/10/19 08:12 Blood Pressure 135/67 03/10/19 08:12 Pulse Oximetry 100 03/10/19 08:12 Course Orders Ordered: ED Orders 03/10/19 10:38 CT abdomen pelvis w con Stat Hydrocodone Bitart/Acetaminophen ([place] 5/325) 1 tab PO Q30MIN PRN PRN Reason: Mild or moderate pain Fentanyl (Sublimaze) 50 mcg IV Q5MIN PRN PRN Reason: Pain, Moderate (4-6) Hydromorphone HCl (Dilaudid) 0.5 mg IV Q5MIN PRN PRN Reason: Pain, Moderate (4-6) Sodium Chloride (Normal Saline 0.9%) 1,000 mls @ 150 mls/hr IV CONT [facility] Last Infusion: 03/10/19 14:08 Dose: 150 mls/hr Admin: 03/10/19 09:22 Dose: 150 mls/hr Lactated Ringer's (Lactated Ringers) 1,000 mls @ 42 mls/hr IV NOW ONE Stop: 03/11/19 14:48 Last Admin: 03/10/19 18:52 Dose: 42 mls/hr Infusion: 03/10/19 18:52 Dose: 42 mls/hr Admin: 03/10/19 15:01 Dose: 42 mls/hr Lactated Ringer's (Lactated Ringers) 1,000 mls @ 42 mls/hr IV CONT [facility] Last Admin: 03/10/19 16:59 Dose: 42 mls/hr Ondansetron HCl (Zofran) 4 mg IV NOW PRN PRN Reason: Nausea And Vomiting Oxycodone/Acetaminophen (Percocet 5/325) 1 tab PO Q30MIN PRN PRN Reason: Mild or moderate pain Discontinued Medications Bupivacaine HCl/Epinephrine Bitart (Marcaine 0.25% W/ Epi (Pf)) 10 ml INJ NOW ONE Stop: 03/10/19 18:51 Last Admin: 03/10/19 18:53 Dose: 10 ml Cefotetan Disodium/Dextrose (Cefotan) 2 gm in 50 mls @ 100 mls/hr IV NOW ONE Stop: 03/10/19 12:05 Last Infusion: 03/10/19 12:54 Dose: 0 mls/hr Admin: 03/10/19 11:43 Dose: 100 mls/hr Consultations Consultation #1: call to gen surg, happy to accept. Will take to the OR this evening Time: 11:35 Vital Signs - 8 hr 03/10/19 12:28 03/10/19 13:32 03/10/19 15:02 Temperature 99.3 F 97.8 F Pulse Rate 56 L 66 Respiratory Rate 16 15 Blood Pressure 126/67 Blood Pressure [Left Arm] 113/66 Pulse Oximetry 100 100 MDM - Abdominal Pain Differential Diagnosis Differential diagnosis: Likely acute appendicitis Medical Records Attestation: I reviewed the patient's medical records. Lab Data Attestation: I reviewed the patient's lab results. Result diagrams: 03/10/19 09:00 03/10/19 09:00 Lab Results 03/10/19 03/10/19 03/10/19 Range/Units 08:05 09:00 09:00 WBC 7.6 (4.5-11.0) X10^3/uL RBC 4.20 (4.0-5.2) X10^6/uL Hgb 11.8 L (12.0-16.0) g/dL Hct 34.9 L (36-46) % MCV 83.2 (80-100) fL MCH 28.1 (26-34) PG MCHC 33.8 (30-36) % RDW 12.7 (11.6-14.8) % Plt Count 406 H (150-400) X10^3/uL Neut % (Auto) 59.8 (50-75) % Lymph % (Auto) 31.2 (25-40) % [place] % (Auto) 8.2 (3-14) % Eos % (Auto) 0.2 L (2-4) % Baso % (Auto) 0.6 (0-2) % Neut # (Auto) 4500 (2385-3731) /uL Lymph # (Auto) 2400 (5769-2725) /uL [place] # (Auto) 600 (0-900) /uL Eos # (Auto) 0 (0-450) /uL Baso # (Auto) 0 (0-100) /uL Sodium 139 (137-145) mmol/L Potassium 3.8 (3.4-5.1) mmol/L Chloride 100 (98-107) mmol/L Carbon Dioxide 31 (22-32) mmol/L BUN 3 L (7-17) mg/dL Creatinine 0.70 (0.52-1.04) mg/dL Estimated GFR > 60.0 (>60) mL/min BUN/Creatinine Ratio 4.3 L (6-22) Glucose 81 (70-100) mg/dL Calcium 9.0 (8.4-10.2) mg/dL Total Bilirubin 0.8 (0.2-1.3) mg/dL AST 24 (14-36) IU/L ALT 25 (9-52) IU/L Alkaline Phosphatase 134 H (38-126) U/L Total Protein 7.7 (6.3-8.2) g/dL Albumin 4.2 (3.5-5.0) g/dL Globulin 3.5 (1.7-4.1) g/dL Albumin/Globulin Ratio 1.2 (1.0-2.8) Lipase < 10 L (23-300) U/L Urine RBC 1-5/hpf (0-5/HPF) Urine WBC 1-5/hpf (0-5/HPF) Ur Squamous Epith Cells 5-10 /hpf H (0-5/HPF) Ur Transition Epith Cell 0-1/hpf (0-5/HPF) Urine Bacteria Moderate (10-30) H (None) Urine Mucus 1+ H (Negative) Ur Culture Indicated? Cult not indicated Point of care testing: Point of Care Testing Test Results Negative Urine Dip Bedside Urine Glucose Negative Bedside Urine Bilirubin - Negative Bedside Urine Ketone - Negative Urine Specific [place] 1.020 Bedside Urine Occult Blood - Negative Bedside Urine pH 7.5 Bedside Urine Protein +/- 15 Bedside Urine Urobilinogen - Negative Bedside Urine Nitrite - Negative Bedside Urine Leukocytes - Negative Esterase Imaging Data US - abdomen: Radiologist's impression: [address] [address] Ultrasound Report Signed Patient: Constantino Coombs EMR#: [id number] : 1990Acct:[id number] Age/Sex: 28 / FDate of Service: 03/10/19 Loc: ED Accession Number: [id number] Procedure: US pelvic complete Ordering Provider: Quentin Arellano D.O. PROCEDURE: US PELVIC COMPLETE INDICATIONS: RIGHT LOWER QUADRANT PAIN TECHNIQUE: Real-time scanning was performed of the pelvic organs, with image documentation. Additional endovaginal scanning was necessary due to incomplete visualization of the adnexal and endometrial structures by transabdominal scanning. COMPARISON: None. FINDINGS: Transabdominal scanning: Limited scanning through the kidneys shows no hydronephrosis. No pathologic free abdominal or pelvic fluid. Endovaginal scanning: Uterus: Uterus is normal in size at 10.1 x 6.2 x 6.5 cm. The endometrium measures 11-12 mm in combined thickness. Midline anterior intramural fibroid measuring 1.2 x 0.9 x 1.9 cm with associated calcifications. Left posterior intramural fibroid measuring 1.4 x 1.1 x 1.5 cm Ovaries: Ovaries unremarkable. Right ovary measures 5.2 x 2.6 x 3.1 cm the left ovary measures 4.0 x 1.3 x 3.4 cm. Doppler interrogation demonstrates appropriate waveforms in both ovaries. IMPRESSION: Multiple uterine fibroids. Otherwise, unremarkable examination as above. Dictated by: Fabio Crandall M.D. on 03/10/2019 at 9:14 Approved by: Fabio Crandall M.D. on 03/10/2019 at 9:16 CT scan - abdomen: Radiologist's impression: atient: Constantino Coombs EMR#: [id number] : 1990Acct:[id number] Age/Sex: 28 / FDate of Service: 03/10/19 Loc: ED Accession Number: [id number] Procedure: CT abdomen pelvis w con Ordering Provider: Quentin Arellano D.O. PROCEDURE: CT ABDOMEN PELVIS W CON INDICATIONS: RLQ pain, anorexia, subjective fever TECHNIQUE: After the administration of intravenous contrast, 5 mm thick sections acquired from the diaphragm to the symphysis. 5 mm coronal and sagittal reformats were acquired. For radiation dose reduction, the following was used: automated exposure control, adjustment of mA and/or kV according to patient size. COMPARISON: [facility], US PELVIC COMPLETE, 03/10/2019, 8:48. [facility], US ABDOMEN COMPLETE, 07/22/2018, 19:12. FINDINGS: Image quality: Excellent. ABDOMEN: Lung bases: Lung bases are clear. Heart size is normal. Solid organs: Liver is normal in size and enhancement. Incidental note is made of focal fatty infiltration adjacent to the falciform ligament, which is not regarded to be pathologic. Gallbladder has been removed. Biliary system is non dilated for a post cholecystectomy patient. Pancreas enhances normally. Spleen is normal in size and enhancement. No adrenal nodules. Kidneys demonstrate normal size and enhancement, without hydronephrosis. Peritoneum and bowel: In this patient with this given history, scrutiny is given to the appendix. The appendix demonstrates mildly hyperenhancing garcia. It is mildly thickened at 9 mm. Minimal surrounding inflammatory changes are seen. Bowel loops otherwise demonstrate normal wall thickness and caliber. No free air. Nodes and vessels: No retroperitoneal or mesenteric adenopathy by size criteria. Aorta and inferior vena cava are normal in size. Miscellaneous: No ventral hernias. PELVIS: Genitourinary: Bladder wall thickness is normal. Uterine fibroids are seen. Miscellaneous: No inguinal hernias or adenopathy. Bones: No suspicious bony lesions. No vertebral body compression fractures. IMPRESSION: These imaging findings are compatible with early appendicitis, with the appendix demonstrating mildly hyperenhancing garcia and is mildly prominent at 9 mm. Incidental note is made of: Fatty infiltration adjacent to the falciform ligament Cholecystectomy Uterine fibroids Dictated by: Jayjay Chisholm M.D. on 03/10/2019 at 10:20 Approved by: Jayjay Chisholm M.D. on 03/10/2019 at 10:25 Discharge Plan Departure Patient Disposition: Admitted as Observation Clinical Impression: Acute appendicitis Qualifiers: Acute appendicitis type: with localized peritonitis Appendicitis gangrene presence: without gangrene Appendicitis perforation presence: without perforation Appendicitis abscess presence: without abscess Qualified Code(s): K35.30 - Acute appendicitis with localized peritonitis, without perforation or gangrene Discharge Date/Time: 03/10/19 15:03 Interventions: ED Discharge Assessment Last Done: 03/10/19 15:03 Instructions: DI for an Appendectomy, DI for Laparoscopy
--- NOTE | 2019-03-10 08:34 | DI.US.S_ITS ---
PROCEDURE: US PELVIC COMPLETE INDICATIONS: RIGHT LOWER QUADRANT PAIN TECHNIQUE: Real-time scanning was performed of the pelvic organs, with image documentation. Additional endovaginal scanning was necessary due to incomplete visualization of the adnexal and endometrial structures by transabdominal scanning. COMPARISON: None. FINDINGS: Transabdominal scanning: Limited scanning through the kidneys shows no hydronephrosis. No pathologic free abdominal or pelvic fluid. Endovaginal scanning: Uterus: Uterus is normal in size at 10.1 x 6.2 x 6.5 cm. The endometrium measures 11-12 mm in combined thickness. Midline anterior intramural fibroid measuring 1.2 x 0.9 x 1.9 cm with associated calcifications. Left posterior intramural fibroid measuring 1.4 x 1.1 x 1.5 cm Ovaries: Ovaries unremarkable. Right ovary measures 5.2 x 2.6 x 3.1 cm the left ovary measures 4.0 x 1.3 x 3.4 cm. Doppler interrogation demonstrates appropriate waveforms in both ovaries. IMPRESSION: Multiple uterine fibroids. Otherwise, unremarkable examination as above. Dictated by: Fabio Crandall M.D. on 03/10/2019 at 9:14 Approved by: Fabio Crandall M.D. on 03/10/2019 at 9:16
[2019-03-10 08:36] LABS: Bacteria Urine Moderate (10-30); Culture Indicated Urine Cult Not Indicated; Mucus Urine 1+ (Negative); RBC Urine 1-5/HPF (0-5/HPF); Squamous Epithelial Cell Urine 5-10 /HPF (0-5/HPF); Transitional Epi Cells Urine 0-1/HPF (0-5/HPF); WBC Urine 1-5/HPF (0-5/HPF)
--- NOTE | 2019-03-10 08:56 | ED_ITS ---
HPI - Abdominal Pain General Chief Complaint: Abdominal Pain Stated Complaint: PAIN IN LOWER RIGHT ABDOMEN Time Seen by Provider: 03/10/19 08:01 Source: patient Mode of arrival: ambulatory Limitations: no limitations History of Present Illness HPI narrative: 28F nonsmoker presents with a chief complaint of gradually worsening right lower quadrant pain for the past 4 days. She states it has been gradually worsening and has both periumbilical and right lower quadrant. She has a decreased appetite and subjective fever. She denies nausea or vomiting. She denies vaginal bleeding or discharge. She has had some dysuria and frequency. Her last period was 3 or 4 days ago and normal MD complaint: abdominal pain Onset (ago): day(s) Pain Consistency: constant Location: RLQ Severity: moderate Quality: cramping and aching Migration to: no migration Relieving factors: rest Exacerbating factors: movement Associated symptoms: nausea and fever Related Data Home Medications Medication Instructions Recorded Confirmed No Known Home Medications 03/10/19 03/10/19 Allergies Allergy/AdvReac Type Severity Reaction Status Date / Time No Known Drug Allergies Allergy Verified 03/10/19 15:31 Review of Systems Constitutional Denies chills, Denies fever(s), Denies lethargy and Denies weakness Eyes Denies change in vision, Denies eye discharge, Denies irritation and Denies loss of vision ENT Ears, Nose, Mouth, and Throat: Denies change in voice, Denies neck pain and Denies sore throat Cardiovascular Denies chest pain, Denies irregular heart rhythm, Denies lightheadedness, Denies palpitations, Denies dyspnea, Denies dyspnea on exertion and Denies orthopnea Respiratory Denies cough, Denies dyspnea, Denies dyspnea on exertion and Denies wheezing Gastrointestinal Gastrointestinal: Reports abdominal pain, Denies change in bowel habits, Denies diarrhea, Reports nausea and Denies vomiting Genitourinary Denies hematuria, Denies flank pain, Denies urinary incontinence and Denies urinary urgency Musculoskeletal Denies neck pain Integumentary/Breasts Denies pruritus, Denies erythema, Denies rash and Denies wounds Neurologic Denies confusion, Denies loss of vision and Denies weakness Psychiatric Denies anxiety, Denies confusion, Denies depression, Denies homicidal ideation and Denies suicidal ideation Endocrine Denies palpitations Hematologic/Lymphatic Denies easy bruising Allergic/Immunologic Denies wheezing [facility] Medical History Healthy adult (Acute) Surgical History History of (Chronic) History of umbilical hernia repair (Chronic) Family History Father Hypertension Mother Gallstones Grandmother Stroke Social History marital status: household members: spouse, family and children occupational status: employed Smoking Status: Never smoker Family History Father Hypertension Mother Gallstones Grandmother Stroke Social History marital status: household members: significant other, family and children occupational status: employed Smoking Status: Never smoker Exam Narrative Exam Narrative: GENERAL: 28-year-old female resting comfortably, sitting very still and rubbing her right lower quadrant HEAD: Atraumatic. Normocephalic. No temporal or scalp tenderness. EYES: Pupils equal round and reactive. Extraocular motions intact. No scleral icterus. No injection or drainage. ENT: Nose without bleeding, purulent drainage or septal hematoma. Throat without erythema, tonsillar hypertrophy or exudate. Uvula midline. Airway patent. NECK: Trachea midline. No JVD or lymphadenopathy. Supple, nontender, no meningeal signs. CARDIOVASCULAR: Regular rate and rhythm without murmurs, gallops, or rubs. RESPIRATORY: Clear to auscultation. Breath sounds equal bilaterally. No wheezes, rales, or rhonchi. Positive psoas, Rovsing's EXTREMITIES: No clubbing, cyanosis, or edema. No joint tenderness, effusion, or edema noted. BACK: Nontender without deformity or crepitance. No flank tenderness. NEURO: AOx3. SKIN: No rash or erythema. Initial Vital Signs Initial Vital Signs: Vital Signs Temperature 98.3 F 03/10/19 08:12 Pulse Rate 59 L 03/10/19 08:12 Respiratory Rate 16 03/10/19 08:12 Blood Pressure 135/67 03/10/19 08:12 Pulse Oximetry 100 03/10/19 08:12 Course Orders Ordered: ED Orders 03/10/19 10:38 CT abdomen pelvis w con Stat Hydrocodone Bitart/Acetaminophen ([place] 5/325) 1 tab PO Q30MIN PRN PRN Reason: Mild or moderate pain Fentanyl (Sublimaze) 50 mcg IV Q5MIN PRN PRN Reason: Pain, Moderate (4-6) Hydromorphone HCl (Dilaudid) 0.5 mg IV Q5MIN PRN PRN Reason: Pain, Moderate (4-6) Sodium Chloride (Normal Saline 0.9%) 1,000 mls @ 150 mls/hr IV CONT [facility] Last Infusion: 03/10/19 14:08 Dose: 150 mls/hr Admin: 03/10/19 09:22 Dose: 150 mls/hr Lactated Ringer's (Lactated Ringers) 1,000 mls @ 42 mls/hr IV NOW ONE Stop: 03/11/19 14:48 Last Admin: 03/10/19 18:52 Dose: 42 mls/hr Infusion: 03/10/19 18:52 Dose: 42 mls/hr Admin: 03/10/19 15:01 Dose: 42 mls/hr Lactated Ringer's (Lactated Ringers) 1,000 mls @ 42 mls/hr IV CONT [facility] Last Admin: 03/10/19 16:59 Dose: 42 mls/hr Ondansetron HCl (Zofran) 4 mg IV NOW PRN PRN Reason: Nausea And Vomiting Oxycodone/Acetaminophen (Percocet 5/325) 1 tab PO Q30MIN PRN PRN Reason: Mild or moderate pain Discontinued Medications Bupivacaine HCl/Epinephrine Bitart ([place] 0.25% W/ Epi (Pf)) 10 ml INJ NOW ONE Stop: 03/10/19 18:51 Last Admin: 03/10/19 18:53 Dose: 10 ml Cefotetan Disodium/Dextrose (Cefotan) 2 gm in 50 mls @ 100 mls/hr IV NOW ONE Stop: 03/10/19 12:05 Last Infusion: 03/10/19 12:54 Dose: 0 mls/hr Admin: 03/10/19 11:43 Dose: 100 mls/hr Consultations Consultation #1: call to gen surg, happy to accept. Will take to the OR this evening Time: 11:35 Vital Signs - 8 hr 03/10/19 12:28 03/10/19 13:32 03/10/19 15:02 Temperature 99.3 F 97.8 F Pulse Rate 56 L 66 Respiratory Rate 16 15 Blood Pressure 126/67 Blood Pressure [Left Arm] 113/66 Pulse Oximetry 100 100 MDM - Abdominal Pain Differential Diagnosis Differential diagnosis: Likely acute appendicitis Medical Records Attestation: I reviewed the patient's medical records. Lab Data Attestation: I reviewed the patient's lab results. Result diagrams: 03/10/19 09:00 03/10/19 09:00 Lab Results 03/10/19 03/10/19 03/10/19 Range/Units 08:05 09:00 09:00 WBC 7.6 (4.5-11.0) X10^3/uL RBC 4.20 (4.0-5.2) X10^6/uL Hgb 11.8 L (12.0-16.0) g/dL Hct 34.9 L (36-46) % MCV 83.2 (80-100) fL MCH 28.1 (26-34) PG MCHC 33.8 (30-36) % RDW 12.7 (11.6-14.8) % Plt Count 406 H (150-400) X10^3/uL Neut % (Auto) 59.8 (50-75) % Lymph % (Auto) 31.2 (25-40) % [place] % (Auto) 8.2 (3-14) % Eos % (Auto) 0.2 L (2-4) % Baso % (Auto) 0.6 (0-2) % Neut # (Auto) 4500 (6162-9035) /uL Lymph # (Auto) 2400 (5351-4054) /uL [place] # (Auto) 600 (0-900) /uL Eos # (Auto) 0 (0-450) /uL Baso # (Auto) 0 (0-100) /uL Sodium 139 (137-145) mmol/L Potassium 3.8 (3.4-5.1) mmol/L Chloride 100 (98-107) mmol/L Carbon Dioxide 31 (22-32) mmol/L BUN 3 L (7-17) mg/dL Creatinine 0.70 (0.52-1.04) mg/dL Estimated GFR > 60.0 (>60) mL/min BUN/Creatinine Ratio 4.3 L (6-22) Glucose 81 (70-100) mg/dL Calcium 9.0 (8.4-10.2) mg/dL Total Bilirubin 0.8 (0.2-1.3) mg/dL AST 24 (14-36) IU/L ALT 25 (9-52) IU/L Alkaline Phosphatase 134 H (38-126) U/L Total Protein 7.7 (6.3-8.2) g/dL Albumin 4.2 (3.5-5.0) g/dL Globulin 3.5 (1.7-4.1) g/dL Albumin/Globulin Ratio 1.2 (1.0-2.8) Lipase < 10 L (23-300) U/L Urine RBC 1-5/hpf (0-5/HPF) Urine WBC 1-5/hpf (0-5/HPF) Ur Squamous Epith Cells 5-10 /hpf H (0-5/HPF) Ur Transition Epith Cell 0-1/hpf (0-5/HPF) Urine Bacteria Moderate (10-30) H (None) Urine Mucus 1+ H (Negative) Ur Culture Indicated? Cult not indicated Point of care testing: Point of Care Testing Test Results Negative Urine Dip Bedside Urine Glucose Negative Bedside Urine Bilirubin - Negative Bedside Urine Ketone - Negative Urine Specific [place] 1.020 Bedside Urine Occult Blood - Negative Bedside Urine pH 7.5 Bedside Urine Protein +/- 15 Bedside Urine Urobilinogen - Negative Bedside Urine Nitrite - Negative Bedside Urine Leukocytes - Negative Esterase Imaging Data US - abdomen: Radiologist's impression: [address] [address] Ultrasound Report Signed Patient: Constantino Coombs EMR#: [id number] : 1990Acct:[id number] Age/Sex: 28 / FDate of Service: 03/10/19 Loc: ED Accession Number: [id number] Procedure: US pelvic complete Ordering Provider: Quentin Arellano D.O. PROCEDURE: US PELVIC COMPLETE INDICATIONS: RIGHT LOWER QUADRANT PAIN TECHNIQUE: Real-time scanning was performed of the pelvic organs, with image documentation. Additional endovaginal scanning was necessary due to incomplete visualization of the adnexal and endometrial structures by transabdominal scanning. COMPARISON: None. FINDINGS: Transabdominal scanning: Limited scanning through the kidneys shows no hydronephrosis. No pathologic free abdominal or pelvic fluid. Endovaginal scanning: Uterus: Uterus is normal in size at 10.1 x 6.2 x 6.5 cm. The endometrium measures 11-12 mm in combined thickness. Midline anterior intramural fibroid measuring 1.2 x 0.9 x 1.9 cm with associated calcifications. Left posterior intramural fibroid measuring 1.4 x 1.1 x 1.5 cm Ovaries: Ovaries unremarkable. Right ovary measures 5.2 x 2.6 x 3.1 cm the left ovary measures 4.0 x 1.3 x 3.4 cm. Doppler interrogation demonstrates appropriate waveforms in both ovaries. IMPRESSION: Multiple uterine fibroids. Otherwise, unremarkable examination as above. Dictated by: Fabio Crandall M.D. on 03/10/2019 at 9:14 Approved by: Fabio Crandall M.D. on 03/10/2019 at 9:16 CT scan - abdomen: Radiologist's impression: atient: Constantino Coombs EMR#: [id number] : 1990Acct:[id number] Age/Sex: 28 / FDate of Service: 03/10/19 Loc: ED Accession Number: [id number] Procedure: CT abdomen pelvis w con Ordering Provider: Quentin Arellano D.O. PROCEDURE: CT ABDOMEN PELVIS W CON INDICATIONS: RLQ pain, anorexia, subjective fever TECHNIQUE: After the administration of intravenous contrast, 5 mm thick sections acquired from the diaphragm to the symphysis. 5 mm coronal and sagittal reformats were acquired. For radiation dose reduction, the following was used: automated exposure control, adjustment of mA and/or kV according to patient size. COMPARISON: [facility], US PELVIC COMPLETE, 03/10/2019, 8:48. [facility], US ABDOMEN COMPLETE, 07/22/2018, 19:12. FINDINGS: Image quality: Excellent. ABDOMEN: Lung bases: Lung bases are clear. Heart size is normal. Solid organs: Liver is normal in size and enhancement. Incidental note is made of focal fatty infiltration adjacent to the falciform ligament, which is not regarded to be pathologic. Gallbladder has been removed. Biliary system is non dilated for a post cholecystectomy patient. Pancreas enhances normally. Spleen is normal in size and enhancement. No adrenal nodules. Kidneys demonstrate normal size and enhancement, without hydronephrosis. Peritoneum and bowel: In this patient with this given history, scrutiny is given to the appendix. The appendix demonstrates mildly hyperenhancing garcia. It is mildly thickened at 9 mm. Minimal surrounding inflammatory changes are seen. Bowel loops otherwise demonstrate normal wall thickness and caliber. No free air. Nodes and vessels: No retroperitoneal or mesenteric adenopathy by size criteria. Aorta and inferior vena cava are normal in size. Miscellaneous: No ventral hernias. PELVIS: Genitourinary: Bladder wall thickness is normal. Uterine fibroids are seen. Miscellaneous: No inguinal hernias or adenopathy. Bones: No suspicious bony lesions. No vertebral body compression fractures. IMPRESSION: These imaging findings are compatible with early appendicitis, with the appendix demonstrating mildly hyperenhancing garcia and is mildly prominent at 9 mm. Incidental note is made of: Fatty infiltration adjacent to the falciform ligament Cholecystectomy Uterine fibroids Dictated by: Jayjay Chisholm M.D. on 03/10/2019 at 10:20 Approved by: Jayjay Chisholm M.D. on 03/10/2019 at 10:25 Discharge Plan Departure Patient Disposition: Admitted as Observation Clinical Impression: Acute appendicitis Qualifiers: Acute appendicitis type: with localized peritonitis Appendicitis gangrene presence: without gangrene Appendicitis perforation presence: without perforation Appendicitis abscess presence: without abscess Qualified Code(s): K35.30 - Acute appendicitis with localized peritonitis, without perforation or gangrene Discharge Date/Time: 03/10/19 15:03 Interventions: ED Discharge Assessment Last Done: 03/10/19 15:03 Instructions: DI for an Appendectomy, DI for Laparoscopy
[2019-03-10 09:15] LABS: Add Manual Diff / Slide Review NO; Basophils Absolute Auto 0 /uL (0-100); Basophils Percent Auto 0.6 % (0-2); Eosinophils Absolute Auto 0 /uL (0-450); Eosinophils Percent Auto 0.2 % (2-4); Hematocrit 34.9 % (36-46); Hemoglobin 11.8 g/dL (12.0-16.0); Lymphocytes Absolute Auto 2400 /uL (1100-4500); Lymphocytes Percent Auto 31.2 % (25-40); Mean Corpuscular HGB Conc 33.8 % (30-36); Mean Corpuscular Hemoglobin 28.1 PG (26-34); Mean Corpuscular Volume 83.2 fL (80-100); Monocytes Absolute Auto 600 /uL (0-900); Monocytes Percent Auto 8.2 % (3-14); Neutrophils Absolute Auto 4500 /uL (1500-7000); Neutrophils Percent Auto 59.8 % (50-75); Platelet Count 406 X10^3/uL (150-400); Red Cell Distribution Width 12.7 % (11.6-14.8); White Blood Cell Count 7.6 X10^3/uL (4.5-11.0)
[2019-03-10] MEDS: SODIUM CHLORIDE 0.9% 1,000 ML 150 ML IV (09:22)
[2019-03-10 09:28] LABS: Alanine Aminotransferase 25 IU/L (9-52); Albumin 4.2 g/dL (3.5-5.0); Albumin Globulin Ratio 1.2 (1.0-2.8); Alkaline Phosphatase 134 U/L (38-126); Aspartate Aminotransferase 24 IU/L (14-36); BUN Creatinine Ratio 4.3 (6-22); Bilirubin Total 0.8 mg/dL (0.2-1.3); Blood Urea Nitrogen 3 mg/dL (7-17); Carbon Dioxide 31 mmol/L (22-32); Chloride 100 mmol/L (98-107); Estimated Glomerular Filt Rate > 60.0 mL/min (>60); Globulin 3.5 g/dL (1.7-4.1); Glucose 81 mg/dL (70-100); HEMOLYSIS < 15 (0-50); Lipase < 10 U/L (23-300); Potassium 3.8 mmol/L (3.4-5.1); Sodium 139 mmol/L (137-145); Total Protein 7.7 g/dL (6.3-8.2)
--- NOTE | 2019-03-10 10:38 | DI.CT.S_ITS ---
PROCEDURE: CT ABDOMEN PELVIS W CON INDICATIONS: RLQ pain, anorexia, subjective fever TECHNIQUE: After the administration of intravenous contrast, 5 mm thick sections acquired from the diaphragm to the symphysis. 5 mm coronal and sagittal reformats were acquired. For radiation dose reduction, the following was used: automated exposure control, adjustment of mA and/or kV according to patient size. COMPARISON: [facility], , US PELVIC COMPLETE, 03/10/2019, 8:48. [facility], , US ABDOMEN COMPLETE, 07/22/2018, 19:12. FINDINGS: Image quality: Excellent. ABDOMEN: Lung bases: Lung bases are clear. Heart size is normal. Solid organs: Liver is normal in size and enhancement. Incidental note is made of focal fatty infiltration adjacent to the falciform ligament, which is not regarded to be pathologic. Gallbladder has been removed. Biliary system is non dilated for a post cholecystectomy patient. Pancreas enhances normally. Spleen is normal in size and enhancement. No adrenal nodules. Kidneys demonstrate normal size and enhancement, without hydronephrosis. Peritoneum and bowel: In this patient with this given history, scrutiny is given to the appendix. The appendix demonstrates mildly hyperenhancing garcia. It is mildly thickened at 9 mm. Minimal surrounding inflammatory changes are seen. Bowel loops otherwise demonstrate normal wall thickness and caliber. No free air. Nodes and vessels: No retroperitoneal or mesenteric adenopathy by size criteria. Aorta and inferior vena cava are normal in size. Miscellaneous: No ventral hernias. PELVIS: Genitourinary: Bladder wall thickness is normal. Uterine fibroids are seen. Miscellaneous: No inguinal hernias or adenopathy. Bones: No suspicious bony lesions. No vertebral body compression fractures. IMPRESSION: These imaging findings are compatible with early appendicitis, with the appendix demonstrating mildly hyperenhancing garcia and is mildly prominent at 9 mm. Incidental note is made of: Fatty infiltration adjacent to the falciform ligament Cholecystectomy Uterine fibroids Dictated by: Jayjay Chisholm M.D. on 03/10/2019 at 10:20 Approved by: Jayjay Chisholm M.D. on 03/10/2019 at 10:25
[2019-03-10] MEDS: CEFOTETAN 2 GM/50 ML PIGGYBACK IV (11:43)
--- NOTE | 2019-03-10 13:34 | PC.NURSE ---
Last solid food intake at 7 pm last night and fluid intake 8pm last night. Pt has no new request at this time. Pt waiting transfer to Surgery from ER. Phone report called to SAMI Montes for continuation of care.
--- NOTE | 2019-03-10 14:02 | P.HP_ITS ---
History of Present Illness Date Patient Seen: 03/10/19 Time Patient Seen: 12:58 Chief complaint: PAIN IN LOWER RIGHT ABDOMEN Narrative: 28yo F in otherwise good health presents with worsening right lower quadrant pain. Has noticed for 3-4 days but got worse today and she developed nausea and vomited once. Pain radiates towards umbilicus. No leukocytosis or fevers but she felt hot at home. CT consistent with early appendicitis and no other abnormalities. Patient History Medical History Healthy adult (Acute) Surgical History History of (Chronic) History of umbilical hernia repair (Chronic) Family History Father Hypertension Mother Gallstones Grandmother Stroke Social History marital status: household members: spouse, family and children occupational status: employed Smoking Status: Never smoker Family & Social History Family History Father Hypertension Mother Gallstones Grandmother Stroke Social History: household members spouse,family,children Safety & Behavioral: Feels Safe in Current Yes Environment Been Physically Hurt or No Threatened By a Person Tobacco & Substance use: Smoking Status Never smoker alcohol intake frequency 0-2 drinks per day Substance Use Type does not use Meds Home Medications Medication Instructions Recorded Confirmed Type No Known Home Medications 03/10/19 03/10/19 History Allergies Allergy/AdvReac Type Severity Reaction Status Date / Time No Known Drug Allergies Allergy Verified 03/10/19 08:12 Review of Systems Constitutional Constitutional: Reports as per HPI Exam Vital Signs (past 8 hours): - 03/10/19 08:12 03/10/19 09:33 03/10/19 11:21 Temperature 98.3 F 99.4 F Pulse Rate 59 L 57 L 53 L Respiratory Rate 16 16 16 Blood Pressure 135/67 Blood Pressure [Left Arm] 119/57 L 115/44 L Pulse Oximetry 100 100 100 03/10/19 12:28 03/10/19 13:32 Temperature 99.3 F Pulse Rate 56 L Respiratory Rate 16 Blood Pressure Blood Pressure [Left Arm] 113/66 Pulse Oximetry 100 Oxygen Delivery Method Room Air Narrative Exam Narrative: AAO, NAD, overweight female EOMI, MMM, no scleral icterus unlabored RA soft, nd, mild ttp RLQ MAEW visible skin dry and intact Objective Imaging CT scan - abdomen: Radiologist's impression: IMPRESSION: These imaging findings are compatible with early appendicitis, with the appendix demonstrating mildly hyperenhancing garcia and is mildly prominent at 9 mm. Labs Result Diagrams: 03/10/19 09:00 03/10/19 09:00 Labs: Laboratory Results - last 24 hr 03/10/19 03/10/19 03/10/19 08:05 09:00 09:00 WBC 7.6 RBC 4.20 Hgb 11.8 L Hct 34.9 L MCV 83.2 MCH 28.1 MCHC 33.8 RDW 12.7 Plt Count 406 H Neut % (Auto) 59.8 Lymph % (Auto) 31.2 [place] % (Auto) 8.2 Eos % (Auto) 0.2 L Baso % (Auto) 0.6 Neut # (Auto) 4500 Lymph # (Auto) 2400 [place] # (Auto) 600 Eos # (Auto) 0 Baso # (Auto) 0 Sodium 139 Potassium 3.8 Chloride 100 Carbon Dioxide 31 BUN 3 L Creatinine 0.70 Estimated GFR > 60.0 BUN/Creatinine Ratio 4.3 L Glucose 81 Calcium 9.0 Total Bilirubin 0.8 AST 24 ALT 25 Alkaline Phosphatase 134 H Total Protein 7.7 Albumin 4.2 Globulin 3.5 Albumin/Globulin Ratio 1.2 Lipase < 10 L Urine RBC 1-5/hpf Urine WBC 1-5/hpf Ur Squamous Epith Cells 5-10 /hpf H Ur Transition Epith Cell 0-1/hpf Urine Bacteria Moderate (10-30) H Urine Mucus 1+ H Ur Culture Indicated? Cult not indicated Assessment & Plan Assessment & Plan narrative: - apparent early appendicitis --> minimal changes on CT, interesting given 3-4 day course of pain --> plan for lap appendectomy, all R/B/A discussed and pt wishes to proceed; she understands if appendix is unremarkable we will still remove - IV abx - NPO
[2019-03-10] MEDS: LACTATED RINGERS 1,000 ML 42 ML IV ×2 (15:01→18:52)
--- NOTE | 2019-03-10 18:37 | SUR.OPER ---
Supine on padded OR bed, head on pillow, arm padded and tucked at side, legs uncrossed, safety belt at thigh, tape over blanket over lower legs .
[2019-03-10] MEDS: BUPIVACAINE 0.25% W/ EPI (PF) 10 ML VIAL INJ (18:53)
[2019-03-10] MEDS: HYDROMORPHONE 2 MG INJ 0.5 MG IV ×3 (19:55→20:13)
--- NOTE | 2019-03-10 20:01 | PM.OP.1 ---
Operative Date/Time/Diagnoses Date of procedure: 03/10/19 Time of procedure: 20:01 Pre-op diagnosis: Appendicitis Post-op diagnosis: other (Abdominal Pain, possible Appendicitis) Procedure & Clinicians Procedure: 1. Diagnostic Laparoscopy 2. Laparoscopic Appendectomy Same procedure as scheduled: Yes Indications: 28yo F with 3-4 days of abdominal pain in her right lower quadrant radiating to her umbilicus. Only developed nausea and vomiting this morning. CT suggestive of early appendicitis. We discussed that her multi-day history of pain is in discord with unimpressive imaging but her exam and history are otherwise suggestive of appendicitis and other than known uterine fibroids she has no other abnormal findings. After all options were discussed, she elects for a laparoscopic appendectomy with the understanding that should the appendix be normal we will still remove it as per recommended protocol. All risks, benefits, and alternatives are discussed and she wishes to proceed. Surgeon: Kamryn Tabler Click Yes if Unassisted: Yes Anesthesia Type: General Operative Notes Findings: 1. normal appearing appendix 2. normal bowel and ovaries 3. uterine fibroids 4. clear, straw-colored fluid in pelvis Closure Type: primary Specimen(s): other (appendix) Estimated Blood Loss (mL): 5 Blood products transfused: none Procedure in detail: The patient was taken to the operating room and placed on the operating table in supine position. The abdomen was prepped and draped in sterile fashion and a timeout performed with the team present. Using a 15 blade scalpel and after infiltration with local anesthesia, a small 5 mm incision was made just to the left of the umbilicus. Using a 5 mm Optiview camera port, the laparoscope was inserted into the abdomen. Once confirmed to be within the peritoneum, the abdomen was insufflated with air. Diagnostic laparoscopy showed no injury from initial trocar placement. Under direct vision and after infiltration with local anesthesia, an additional 5 mm trocar was then placed in the midline just above the pubic hairline and a 12 mm trocar was then placed in the left lower quadrant. Patient had very strong fascia making port placement more difficult than usual. The patient was then placed in left side down and in Trendelenberg position. The small bowel was retracted to the left side of the patient. The appendix was identified and appeared normal with no erythema, enlargement, or abnormal appearance. Straw colored fluid was noted in the pelvis. Uterine fibroids were observed. Ovaries were normal in appearance. The small bowel was run from the terminal ileum to the ligament of [place]etz with no abnormalities observed, including Meckel's or changes suggestive of IBD. Attention was turned back to the appendix. This was grasped with a blunt grasper. Using a [place] dissector, a window was made between the mesoappendix and the appendix itself. Using a 45mm Endo SALVADOR stapler with a tissue load, the appendix was transected out at the base. Using a vascular load, the mesoappendix was then transected with the Endo SALVADOR stapler as well. The staple lines were noted to be intact with no evidence of leakage or bleeding. The appendix was placed into an EndoCatch retrieval bag and removed through the 12 mm port without any difficulty. The 12mm port site fascia was closed using an EndoClose device and #1 PDS suture. The secondary trocars were then removed under direct vision noting no bleeding. The abdomen was allowed to desufflate fully and the final trocar was removed. The skin incisions were then closed using 4-0 Monocryl in an interrupted subcuticular fashion. All counts were correct at the end of the procedure. The abdomen was cleaned and dried. Dermabond was placed over the incisions. The patient was awakened and taken to postanesthesia care unit in stable condition. Complications: none Condition: stable Disposition: PACU Plan for aftercare: admit to observation
--- NOTE | 2019-03-10 20:10 | SUR.PHASEI ---
Pt gradually awake. medicated with Dilaudid for pain.
[2019-03-10] MEDS: OXYCODONE/ACETAMINOPHEN 5/325 TABLET 1 TAB PO (20:24)
--- NOTE | 2019-03-10 20:29 | SUR.PHASEI ---
Charting for pain under headache should be for abdomen. Headache pain relieved when awakened from surgery.
--- NOTE | 2019-03-10 20:57 | SUR.PHASEI ---
Pt transported up to room and left with ashley in stable condition. abdomen remained c/d/i.
[2019-03-10] MEDS: IBUPROFEN 400 MG TABLET PO (21:40)
[2019-03-11 00:09] VITALS: BP 133/75; PULSE 57; RESP 18; TEMP 36.6; O2SAT 99
[2019-03-11 05:56] VITALS: BP 135/69; PULSE 61; RESP 18; TEMP 36.8; O2SAT 98
[2019-03-11 07:40] VITALS: BP 130/74; PULSE 64; RESP 16; TEMP 37.1; O2SAT 98
[2019-03-11] MEDS: ACETAMINOPHEN 325 MG TABLET 650 MG PO (07:53)
[2019-03-11 10:01] VITALS: O2SAT 97
--- NOTE | 2019-03-11 11:24 | CM.DANOTE ---
DCP: Case received, EMR reviewed and met with patient. Introduced self and role. Was able to obtain baseline health information from patient. DCP template completed with information currently available. Patient is a 28 year old female who admitted yesterday to the care of the surgical team. PCP: [facility]. Payer: confirmed: Johnathan Perez. Patient came to hospital via private vehicle secondary to right lower quadrant pain, as well as nausea and vomiting. Patient had Laparoscopy Appendectomy performed. Met with patient briefly in her room. Alert and oriented. 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 Asked her provider name, and she stated, she doesn't remember her regular provider, but she sees [facility] ones [facility]. She resides with her spouse in [place]. She has been stationed here for about 2 years, and was at [place] prior. P: DCP to continue to follow. Patient should be able to discharge home when she is medically stable. Maritza Garcia RN/Health Clinician
[2019-03-11] MEDS: IBUPROFEN 400 MG TABLET PO (11:44)
[2019-03-11 11:55] VITALS: BP 119/46; PULSE 67; RESP 16; TEMP 37; O2SAT 100
--- NOTE | 2019-03-11 14:03 | PM.DS.1 ---
History of Present Illness Chief complaint: PAIN IN LOWER RIGHT ABDOMEN Narrative: 28yo F in otherwise good health presents with worsening right lower quadrant pain. Has noticed for 3-4 days but got worse today and she developed nausea and vomited once. Pain radiates towards umbilicus. No leukocytosis or fevers but she felt hot at home. CT consistent with early appendicitis and no other abnormalities. Discharge Providers Discharge Date: 03/11/19 Consults: 03/10/19 20:54 Consult to Discharge Planning Routine Comment: Discharge provider: Kamryn Guevara MD Summary Discharge Diagnosis: abdominal pain Hospital Course: 28yo F with 3-4 days of abdominal pain which worsened day of admission. Imaging and exam concerning for appendicitis so she underwent a diagnostic lap and lap appendectomy. She improved and was discharged next day arian diet. Status at Discharge Cognitive/behavioral status at discharge: at baseline, oriented Overall status at discharge: patient is progressing back to baseline Time Spent with Patient Less than 30 minutes Exam Vital Signs (past 8 hours): - 03/11/19 07:40 03/11/19 10:01 03/11/19 11:55 Temperature 98.7 F 98.6 F Pulse Rate 64 67 Respiratory Rate 16 16 Blood Pressure 130/74 119/46 L Pulse Oximetry 98 97 100 Oxygen Delivery Method Room Air Narrative Exam Narrative: AAO, NAD, overweight female EOMI, MMM, no scleral icterus unlabored RA soft, nt/nd, inc c/d/i MAEW visible skin dry and intact Objective Labs Result Diagrams: 03/10/19 09:00 03/10/19 09:00 Discharge Plan Discharge Plan Patient Disposition: Home Discharge Med Rec/Prescriptions Prescriptions: New oxycodone-acetaminophen 5-325 mg Tablet 1 tab PO Q4HR PRN (Reason: Pain, Moderate (4-6)) Qty: 40 RF: 0 docusate sodium [Colace] 100 mg capsule 100 mg PO BID Qty: 60 RF: 0 Follow up/Referrals: Kamryn Guevara MD [Physician] - Discharge Orders: Discharge (Order); Ordered 03/11/19 Ordered By: Kamryn Guevara Provider Discharge Instructions Diet: Diet as Tolerated Activity: no driving on narcotics no lifting > 20 lbs return to work in one week Skin/Wound/Dressing Care Skin care: ok to shower Visit Report/Discharge Packet Instructions: DI for an Appendectomy, DI for Laparoscopy Stand Alone Forms: Surgery Discharge Discharge Data Attending Provider: Kamryn Guevara
--- NOTE | 2019-03-11 14:24 | PC.NURSE ---
Pt is quiet but pleasant. She has 3 small incisions to lower abdomen with durmobond. Abdomen is soft and non distended. Pt given tylenol and ibuprofen for discomfort. Tylenol not effective for discomfort but ibuprofen worked better. Pt refused percocet x2, she stated that she did not want to take narcotics. Denies nausea and tolerating regular diet. in room visiting.
== END 2019-03-11 15:58 | disposition home or self-care (01) ==
LOC: ED 11:33 → AC 12:45 → OR 15:43 → AC 19:40
PROVIDERS: Admitting Provider Surgery; Emergency Provider Emergency Medicine; Visit Provider Surgery
PROC: 0DTJ4ZZ Resection of Appendix, Percutaneous Endoscopic Approach (ICD-10-PCS; CPT 44970; principal; 2019-03-10 16:45)
DX: K37 Unspecified appendicitis (principal); R10.31 Right lower quadrant pain; D25.9 Leiomyoma of uterus, unspecified
CPT/HCPCS: 44970; 36415; 74177; 76830; 76856; 80053; 81003; 81015; 81025; 83690; 85025; 88304; 96361; 96365; 96375; 99219; 99283; 99284; G0378; J0330; J1100; J1170; J2405; J2704; J3010; Q9967

== ENCOUNTER 2019-09-17 17:50 | Emergency (ER) | payer OTHER, SELFPAY ==
[2019-03-10 21:09] VITALS: BMI 29.0
[2019-09-17 18:06] VITALS: BP 118/63; PULSE 67; RESP 15; TEMP 37.1; O2SAT 98; BMI 27.9
--- NOTE | 2019-09-17 18:08 | ED.URI ---
HPI - URI/Sore Throat <Francheska Addison PA-C - Last Filed: 09/17/19 20:46> General Chief Complaint: Upper Respiratory Symptoms Stated Complaint: throat pain, lost her voice Time Seen by Provider: 09/17/19 17:58 Source: patient Mode of arrival: Ambulatory Limitations: no limitations History of Present Illness HPI Narrative: This 28-year-old female comes to ED secondary to worsening sore throat now with laryngitis today. She states she feels congested and somewhat tight in her throat along with the pain. She states she has felt warm and sweaty some at night, has not noted fevers at home. She denies sinus pain, headache, earache. She states she has not had much cough, denies dyspnea or wheeze. She has been exposed to sick a 6-year-old at home with upper respiratory symptoms, no other recent travel or known exposures. Related Data Previous Rx's Medication Instructions Recorded docusate sodium [Colace] 100 mg PO BID #60 cap 03/11/19 oxycodone-acetaminophen 1 tab PO Q4HR PRN #40 tab 03/11/19 naproxen 500 mg PO Q12H #20 tab 09/17/19 Allergies Allergy/AdvReac Type Severity Reaction Status Date / Time No Known Drug Allergies Allergy Verified 09/17/19 18:06 Review of Systems <Francheska Addison PA-C - Last Filed: 09/17/19 20:46> Review of Systems ROS Unobtainable: All systems reviewed & are unremarkable except as noted in HPI and below Patient History <Francheska Addison PA-C - Last Filed: 09/17/19 20:46> Medical History (Updated 09/17/19 @ 19:21 by Francheska Addison PA-C) Healthy adult (Acute) Surgical History (Updated 09/17/19 @ 18:09 by Francheska Addison PA-C) History of appendectomy (Acute) History of (Chronic) History of umbilical hernia repair (Chronic) Hx of cholecystectomy (Resolved) Social History marital status: household members: significant other, family and children occupational status: employed Smoking Status: Never smoker alcohol intake frequency: holidays/special occasions only Substance Use Type: does not use Exam <Francheska Addison PA-C - Last Filed: 09/17/19 20:46> Initial Vital Signs Initial Vital Signs: Vital Signs Temperature 98.7 F 09/17/19 18:06 Pulse Rate 67 09/17/19 18:06 Respiratory Rate 15 09/17/19 18:06 Blood Pressure 118/63 09/17/19 18:06 Pulse Oximetry 98 09/17/19 18:06 <DO Calista Su Last Filed: 09/17/19 21:01> Initial Vital Signs Initial Vital Signs: Vital Signs Temperature 98.7 F 09/17/19 18:06 Pulse Rate 67 09/17/19 18:06 Respiratory Rate 15 09/17/19 18:06 Blood Pressure 118/63 09/17/19 18:06 Pulse Oximetry 98 09/17/19 18:06 Course <Francheska Addison PA-C - Last Filed: 09/17/19 20:46> Course Additional Information: Patient reported sticking sensation in her throat that resolved while here, pain/laryngitis more peristent. She has had several similar episodes. Advised conservative management given exposure to sick child. She will return if acutely worse or persistent sensation of swelling as she did get one dose of dexamethasone for episode 10/14 Orders Ordered: ED Orders 09/17/19 18:17 Strep Grp A by PCR Rapid Stat Discontinued Medications Lidocaine HCl (Viscous Lidocaine 2%) 15 ml PO NOW ONE Stop: 09/17/19 18:17 Last Admin: 09/17/19 18:28 Dose: 15 ml Documented by: SANT[facility] Vital Signs Vital signs: Vital Signs - 8 hr 09/17/19 18:06 09/17/19 19:18 Temperature 98.7 F Pulse Rate 67 58 L Respiratory Rate 15 16 Blood Pressure 118/63 Blood Pressure [Left Arm] 124/69 Pulse Oximetry 98 100 <DO Calista Su Last Filed: 09/17/19 21:01> Orders Ordered: ED Orders 09/17/19 18:17 Strep Grp A by PCR Rapid Stat Discontinued Medications Lidocaine HCl (Viscous Lidocaine 2%) 15 ml PO NOW ONE Stop: 09/17/19 18:17 Last Admin: 09/17/19 18:28 Dose: 15 ml [facility] Vital Signs Vital signs: Vital Signs - 8 hr 09/17/19 18:06 09/17/19 19:18 Temperature 98.7 F Pulse Rate 67 58 L Respiratory Rate 15 16 Blood Pressure 118/63 Blood Pressure [Left Arm] 124/69 Pulse Oximetry 98 100 MDM - URI/Sore Throat <Francheska Addison PA-C - Last Filed: 09/17/19 20:46> Lab Data Labs: Lab Results 09/17/19 Range/Units 18:17 Group A Strep (PCR) Negative <You Dennison DO - Last Filed: 09/17/19 21:01> Lab Data Labs: Lab Results 09/17/19 Range/Units 18:17 Group A Strep (PCR) Negative Discharge Plan Departure Patient Disposition: Home Clinical Impression: Laryngitis Pharyngitis Qualifiers: Pharyngitis/tonsillitis etiology: unspecified etiology Qualified Code(s): J02.9 - Acute pharyngitis, unspecified Discharge Date/Time: 09/17/19 19:38 Instructions: DI for Laryngitis, DI for Viral Pharyngitis Activity Restrictions/Additional Instructions: Please drink fluids and eat soft foods. Start the prescription anti-inflammatory pain medicine to help with throat pain and swelling (I sent the prescription to [facility] for you). Your symptoms are most likely caused by a viral infection, and typically these resolve with a little bit of time. Your test for strep throat was negative today. As we talked about, you should return if you have any acutely worsening symptoms, or sensation of being unable to swallow or manage your secretions, or new symptoms such as high fever. Otherwise, please rest (especially your voice) and follow up with your PCP in a few days for recheck. Prescriptions: New naproxen 500 mg tablet,delayed release (DR/EC) 500 mg PO Q12H Qty: 20 RF: 0 No Action oxycodone-acetaminophen 5-325 mg Tablet 1 tab PO Q4HR PRN (Reason: Pain, Moderate (4-6)) Qty: 40 RF: 0 docusate sodium [Colace] 100 mg capsule 100 mg PO BID Qty: 60 RF: 0 [facility] [Provider Group] Stand Alone Forms: Work Release Note, Work/School Release <You Dennison DO - Last Filed: 09/17/19 21:01> Sign Out Provider Sign Out Attestation: Dr Dennison Co-Sign Statement: I was available for consultation during this patient's emergency department visit. This chart is signed by myself for administrative purposes only. I did not have direct contact with this patient during this visit. They were seen independently by the APC.
[2019-09-17] MEDS: LIDOCAINE VISCOUS 2% 15 ML SOLUTION PO (18:28)
[2019-09-17 19:07] LABS: Strep Grp A by PCR Rapid Negative
[2019-09-17 19:18] VITALS: BP 124/69; PULSE 58; RESP 16; O2SAT 100
== END 2019-09-17 19:38 | disposition home or self-care (01) ==
PROVIDERS: Emergency Provider Internal Medicine
DX: J04.0 Acute laryngitis (principal); J02.9 Acute pharyngitis, unspecified
CPT/HCPCS: 87651; 99282; 99283

== ENCOUNTER 2019-12-23 07:01 | Emergency (ER) | payer OTHER, SELFPAY ==
[2019-03-10 21:09] VITALS: BMI 29.0
[2019-12-23 07:17] VITALS: BP 154/72; PULSE 60; RESP 16; TEMP 37.1; O2SAT 100; BMI 28.4
--- NOTE | 2019-12-23 07:26 | ED.GENADULT ---
HPI - General Adult General Chief complaint: Urogenital-Female Stated complaint: thinks she has mersa or kidney infection Time Seen by Provider: 12/23/19 07:08 Source: patient Mode of arrival: Ambulatory Limitations: no limitations History of Present Illness HPI narrative: 29-year-old female 4 days dysuria. She has been on peridium without any improvement. States it is burning when she urinates and has urinary frequency. No fevers. She also states that she is having swelling of the right side of her vagina. She also feels like she has swollen lymph nodes in her groin. Has pain when she walks and stands. She states that when she is lying down the swelling in the right vaginal area seems to have improved when she stands of for an extended period of time it hurts more and swells more. Has never anything like this in the past. She did go swimming approximately 1 week ago. She did shave in the area at that time. Has not tried anything for symptoms prior to arrival except for the peridium Related Data Previous Rx's Medication Instructions Recorded docusate sodium [Colace] 100 mg PO BID #60 cap 03/11/19 oxycodone-acetaminophen 1 tab PO Q4HR PRN #40 tab 03/11/19 naproxen 500 mg PO Q12H #20 tab 09/17/19 sulfamethoxazole-trimethoprim 1 tab PO BID 7 Days #14 tab 12/23/19 [Bactrim DS] Allergies Allergy/AdvReac Type Severity Reaction Status Date / Time No Known Drug Allergies Allergy Verified 12/23/19 07:17 Review of Systems Constitutional Constitutional: Denies fever(s) Cardiovascular Cardiovascular: Denies chest pain and Denies dyspnea Respiratory Respiratory: Denies dyspnea Gastrointestinal Gastrointestinal: Denies abdominal pain, Denies nausea and Denies vomiting Genitourinary Genitourinary: Reports dysuria and Denies vaginal discharge Comments: See HPI Musculoskeletal Musculoskeletal: Denies arthralgias Integumentary/Breasts Skin/Breast: Denies rash Neurologic Neurologic: Denies behavioral changes Psychiatric Psychiatric: Denies behavioral changes Hematologic/Lymphatic Hematologic/Lymphatic: Denies easy bleeding and Denies easy bruising Patient History Medical History Healthy adult (Acute) Surgical History (Updated 09/17/19 @ 18:09 by Francheska Addison PA-C) History of appendectomy (Acute) History of (Chronic) History of umbilical hernia repair (Chronic) Hx of cholecystectomy (Resolved) Social History marital status: household members: significant other, family and children occupational status: employed Smoking Status: Never smoker Smoking Status: Never smoker alcohol intake frequency: holidays/special occasions only Substance Use Type: does not use Exam Initial Vital Signs Initial Vital Signs: Vital Signs Temperature 98.8 F 12/23/19 07:17 Pulse Rate 60 12/23/19 07:17 Respiratory Rate 16 12/23/19 07:17 Blood Pressure 154/72 H 12/23/19 07:17 Pulse Oximetry 100 12/23/19 07:17 Const General: cooperative and comfortable Limitations: mental status not altered HENMT Head: normal to inspection and normocephalic Resp Effort & Inspection: normal respiratory effort Cardio Rate: regular rate GI Inspection: non-distended Palpation: soft and No firm Other: Patient has induration swelling of the right labia. There is no abscess. Also has induration in the mons pubis area. Does extend up to her upper pubic area. She also has lymph nodes bilateral inguinal region. Skin Other: See section Neuro General: alert and awake Cognition: normal cognition Speech: speech normal Extrem General: normal to inspection and capillary refill normal Course Orders Ordered: ED Orders 12/23/19 07:28 Test Urine Stat 12/23/19 07:44 Urine Culture Stat Urine Microscopic Stat Vital Signs Vital signs: Vital Signs - 8 hr 12/23/19 07:17 Temperature 98.8 F Pulse Rate 60 Respiratory Rate 16 Blood Pressure 154/72 H Pulse Oximetry 100 Medical Decision Making Lab Data Lab results reviewed: Yes I reviewed the patient's lab results. Labs: Lab Results 12/23/19 Range/Units 07:44 Urine RBC 1-5/hpf (0-5/HPF) Urine WBC 1-5/hpf (0-5/HPF) Ur Squamous Epith Cells 1-5 /hpf (0-5/HPF) Urine Bacteria Few (2-10) H (None) Ur Culture Indicated? Specimen cultured Point of Care Testing Test Results Negative Urine Dip Bedside Urine Glucose 100 mg/dl Bedside Urine Bilirubin + 1 Bedside Urine Ketone - Negative Urine Specific [place] 1,015 Bedside Urine Occult Blood +/- Bedside Urine pH 8.0 Bedside Urine Protein +/- 15 Bedside Urine Urobilinogen 1+ 2mg Bedside Urine Nitrite + Positive Bedside Urine Leukocytes + 70 Esterase Point of care testing: Point of Care Testing Test Results Negative Urine Dip Bedside Urine Glucose 100 mg/dl Bedside Urine Bilirubin + 1 Bedside Urine Ketone - Negative Urine Specific [place] 1,015 Bedside Urine Occult Blood +/- Bedside Urine pH 8.0 Bedside Urine Protein +/- 15 Bedside Urine Urobilinogen 1+ 2mg Bedside Urine Nitrite + Positive Bedside Urine Leukocytes + 70 Esterase MDM Narrative Medical decision making narrative: Patient has symptoms and urinalysis consistent with a urinary tract infection. She also has induration of her right labia and also her mons. There is no defined abscess seen. Does have inguinal lymph nodes. She has no history of sexually transmitted diseases. She states she is not concerned about having a sexually transmitted disease. I do feel that we should start patient on antibiotics. Will place on Bactrim to cover urine and skin. Patient was given return precautions and follow-up instructions. She expressed understanding agreement plan. Discharge Plan Departure Patient Disposition: Home Clinical Impression: Urinary tract infection Qualifiers: Urinary tract infection type: site unspecified Hematuria presence: with hematuria Qualified Code(s): N39.0 - Urinary tract infection, site not specified Cellulitis Qualifiers: Site of cellulitis: unspecified site Qualified Code(s): L03.90 - Cellulitis, unspecified Instructions: DI for Urinary Tract Infection (UTI) Activity Restrictions/Additional Instructions: Take the antibiotics as directed. Be sure to contact your primary provider for follow-up. Return to the emergency department for any new or worsening symptoms. [facility] Prescriptions: New sulfamethoxazole-trimethoprim [Bactrim DS] 800-160 mg tablet 1 tab PO BID 7 Days Qty: 14 RF: 0 No Action oxycodone-acetaminophen 5-325 mg Tablet 1 tab PO Q4HR PRN (Reason: Pain, Moderate (4-6)) Qty: 40 RF: 0 docusate sodium [Colace] 100 mg capsule 100 mg PO BID Qty: 60 RF: 0 naproxen 500 mg tablet,delayed release (DR/EC) 500 mg PO Q12H Qty: 20 RF: 0
--- NOTE | 2019-12-23 07:42 | PC.NURSE ---
dr riley at bs with assist with rn.
[2019-12-23 08:02] LABS: Bacteria Urine Few (2-10); Culture Indicated Urine Specimen Cultured; RBC Urine 1-5/HPF (0-5/HPF); Squamous Epithelial Cell Urine 1-5 /HPF (0-5/HPF); WBC Urine 1-5/HPF (0-5/HPF)
== END 2019-12-23 08:56 | disposition home or self-care (01) ==
PROVIDERS: Emergency Provider Emergency Medicine
DX: N39.0 Urinary tract infection, site not specified (principal); L03.90 Cellulitis, unspecified
CPT/HCPCS: 81003; 81015; 81025; 87086; 99282; 99283

== ENCOUNTER 2019-12-24 16:48 | Emergency (ER) | payer OTHER, SELFPAY ==
[2019-03-10 21:09] VITALS: BMI 29.0
[2019-12-24 16:51] VITALS: BP 143/63; PULSE 87; RESP 16; TEMP 36; O2SAT 100; BMI 28.4
--- NOTE | 2019-12-24 17:08 | DI.RAD.S_ITS ---
PROCEDURE: XR CHEST 1V INDICATIONS: suspected sepsis TECHNIQUE: One view of the chest was acquired. COMPARISON: [facility], CT, CT ABDOMEN PELVIS W CON, 03/10/2019, 10:49. FINDINGS: Surgical changes and devices: None. Lungs and pleura: Lungs are clear. No pleural effusions or pneumothorax. Mediastinum: Mediastinal contours appear normal. Heart size is enlarged. Bones and chest wall: No suspicious bony lesions. Overlying soft tissues appear unremarkable. IMPRESSION: No acute cardiopulmonary abnormality. Cardiomegaly. Dictated by: Kumar Beaulieu M.D. on 12/24/2019 at 17:22 Approved by: Kumar Beaulieu M.D. on 12/24/2019 at 17:23
[2019-12-24 17:53] LABS: INR 1.1 (0.9-1.3); Prothrombin Time 13.2 SECONDS (10.1-12.7)
[2019-12-24 17:55] LABS: PTT Partial Thromboplastin Tim 36 SECONDS (26.4-36.2)
[2019-12-24 17:57] LABS: Add Manual Diff / Slide Review NO; Basophils Absolute Auto 100 /uL (0-100); Basophils Percent Auto 1.2 % (0-2); Eosinophils Absolute Auto 0 /uL (0-450); Eosinophils Percent Auto 0.3 % (2-4); Hematocrit 34.5 % (36-46); Hemoglobin 11.5 g/dL (12.0-16.0); Lymphocytes Absolute Auto 2200 /uL (1100-4500); Lymphocytes Percent Auto 23.6 % (25-40); Mean Corpuscular HGB Conc 33.2 % (30-36); Mean Corpuscular Hemoglobin 27.8 PG (26-34); Mean Corpuscular Volume 83.6 fL (80-100); Monocytes Absolute Auto 600 /uL (0-900); Monocytes Percent Auto 6.4 % (3-14); Neutrophils Absolute Auto 6300 /uL (1500-7000); Neutrophils Percent Auto 68.5 % (50-75); Platelet Count 423 X10^3/uL (150-400); Red Blood Cell Count 4.12 X10^6/uL (4.0-5.2); Red Cell Distribution Width 15.2 % (11.6-14.8); White Blood Cell Count 9.2 X10^3/uL (4.5-11.0)
[2019-12-24 17:58] LABS: Lactate (Lactic Acid) 1.1 mmol/L (0.7-2.1)
[2019-12-24 18:01] LABS: Alanine Aminotransferase 20 IU/L (<35); Albumin 4.6 g/dL (3.5-5.0); Albumin Globulin Ratio 1.2 (1.0-2.8); Alkaline Phosphatase 123 U/L (38-126); Aspartate Aminotransferase 28 IU/L (14-36); BUN Creatinine Ratio 6.7 (6-22); Blood Urea Nitrogen 6 mg/dL (7-17); Calcium 9.3 mg/dL (8.4-10.2); Carbon Dioxide 25 mmol/L (22-32); Chloride 101 mmol/L (98-107); Estimated Glomerular Filt Rate > 60.0 mL/min (>60); Globulin 3.9 g/dL (1.7-4.1); Glucose 107 mg/dL (70-100); HEMOLYSIS < 15 (0-50); Lipase 17 U/L (23-300); Potassium 4.1 mmol/L (3.4-5.1); Sodium 137 mmol/L (137-145); Total Protein 8.5 g/dL (6.3-8.2)
--- NOTE | 2019-12-24 18:14 | ED.FEVER ---
HPI - Fever <NICKI Nguyen - Last Filed: 12/24/19 20:28> General Chief Complaint: Fever Stated Complaint: things adverse reaction to a medication Time Seen by Provider: 12/24/19 17:20 Source: patient Mode of arrival: Ambulatory History of Present Illness HPI Narrative: 29-year-old female presents to the emergency department she was recently seen yesterday, on 12/23/2019 and diagnosed with possible vulvar cellulitis and a urinary tract infection yesterday she took Bactrim and developed a frontal dull aching 8/10 headache, light sensitivity and photophobia. She occasionally gets headaches but this headache is worse. Patient states she had night sweats and has felt increasing fatigue. She complains of middle back pain, and neck pain that is worse with movement. She still has burning with urination but states that is improving, she reports decreased swelling to the right side of her labia. Patient denies any rhinorrhea, congestion, abdominal pain, nausea, vomiting, diarrhea, vaginal discharge, vaginal pain, or other concerns. Related Data Previous Rx's Medication Instructions Recorded docusate sodium [Colace] 100 mg PO BID #60 cap 03/11/19 oxycodone-acetaminophen 1 tab PO Q4HR PRN #40 tab 03/11/19 naproxen 500 mg PO Q12H #20 tab 09/17/19 sulfamethoxazole-trimethoprim 1 tab PO BID 7 Days #14 tab 12/23/19 [Bactrim DS] cephalexin 500 mg PO QID 7 Days #28 cap 12/24/19 Allergies Allergy/AdvReac Type Severity Reaction Status Date / Time No Known Drug Allergies Allergy Verified 12/24/19 16:56 Review of Systems <NICKI Nguyen - Last Filed: 12/24/19 20:28> Review of Systems Narrative: REVIEW OF SYSTEMS: GENERAL: Denies fever, chills, malaise, or wt. loss. HENT: No head trauma, sore throat, or dysphagia. EYES: No loss of vision, double vision, eye pain, or irritation. Reports photophobia, see HPI. CARDIOVASCULAR: No chest pain, palpitations, or orthopnea. RESPIRATORY: No shortness of breath or cough. GASTROINTESTINAL: Denies abdominal pain. GENITOURINARY: Reports some continued dysuria which is improving, see HPI. No vaginal discharge or dyspareunia. Denies concerns for STIs MUSCULOSKELETAL: No pain, weakness, or trauma. INTEGUMENTARY: No rash, lesions, or pruritus. NEURO: No numbness, tingling, memory loss, confusion. Reports headaches, see HPI. PSYCH: No behavior or mood changes. Patient History <Varsha Ledesma DIRECTOR OF RECRUITING - Last Filed: 12/24/19 20:28> Surgical History (Updated 09/17/19 @ 18:09 by Francheska Addison PA-C) History of appendectomy (Acute) History of (Chronic) History of umbilical hernia repair (Chronic) Hx of cholecystectomy (Resolved) Social History marital status: household members: significant other, family and children occupational status: employed Smoking Status: Never smoker Smoking Status: Never smoker alcohol intake frequency: holidays/special occasions only Substance Use Type: does not use Exam <Varsha LedesmaNICKI - Last Filed: 12/24/19 20:28> Initial Vital Signs Initial Vital Signs: Vital Signs Temperature 96.8 F L 12/24/19 16:51 Pulse Rate 87 12/24/19 16:51 Respiratory Rate 16 12/24/19 16:51 Blood Pressure 143/63 H 12/24/19 16:51 Pulse Oximetry 100 12/24/19 16:51 PHYSICAL EXAMINATION: GENERAL: Well groomed, alert, and cooperative. Answers questions promptly and appropriately. Vital signs noted. HENT: Normocephalic, atraumatic. Hearing intact. Oral mucosa is pink and moist. EYES: PERRLA, EOMIs, Conjunctiva pink, sclera white, no periorbital swelling. NECK: Full range of motion after administration of medication, no spinal tenderness, no paraspinal vertebral tenderness. CARDIOVASCULAR: S1 and S2 sounds normal. Regular rate and rhythm, no murmurs, clicks, or bruits. RESPIRATORY: Normal respiratory rate, trachea midline, airway patent. No stridor, nasal flaring or accessory muscle use. Lungs are clear in all [place] without wheeze, rhonchi, or crackles. GASTROINTESTINAL: Bowel sounds normoactive. Abdomen is soft and non-tender. No organomegaly, no palpable masses. GENITALURINARY: No flank tenderness. Right external labia with very small amount of swelling and erythema, no abscess, inflamed glands, or fluctuation. MUSCULOSKELETAL: Normal gait and coordination. Equal tone and mass bilaterally. EXTREMITIES: CMS intact, no pedal edema. SKIN: Warm, dry, soft, appropriate color for ethnicity. No lesions, rashes, or wounds to visualized areas. NEURO: Alert and Oriented X 3. Good coordination. No ataxia, or sensory deficits, or cognitive issues. CN III-XIII grossly intact. PSYCH: Appropriate affect and mood. <Ivory Calloway MD - Last Filed: 12/25/19 03:26> Initial Vital Signs Initial Vital Signs: Vital Signs Temperature 96.8 F L 12/24/19 16:51 Pulse Rate 87 12/24/19 16:51 Respiratory Rate 16 12/24/19 16:51 Blood Pressure 143/63 H 12/24/19 16:51 Pulse Oximetry 100 12/24/19 16:51 Course <NICKI Nguyen - Last Filed: 12/24/19 20:28> Course Course Narrative: Patient was given IV fluids, Toradol, Benadryl, and Reglan which completely resolved headache and neck pain. Patient states she is feeling much better. Discussed with patient that his symptoms may be due to her antibiotic, we discussed pros and cons of switching antibiotic. Patient elected to have the antibiotic switched. Orders Ordered: ED Orders 12/24/19 18:52 Influenza A & B (PCR) Stat Discontinued Medications Diphenhydramine HCl (Benadryl) 25 mg IV NOW ONE Stop: 12/24/19 18:13 Last Admin: 12/24/19 18:42 Dose: 25 mg Documented by: OUMOU Sodium Chloride (Normal Saline 0.9%) 1,000 mls @ 1,000 mls/hr IV BOLUS ONE Stop: 12/24/19 19:11 Last Infusion: 12/24/19 19:41 Dose: 0 mls/hr Documented by: Admin: 12/24/19 18:38 Dose: 1,000 mls/hr Documented by: OUMOU Ketorolac Tromethamine (Toradol) 30 mg IV NOW ONE Stop: 12/24/19 18:13 Last Admin: 12/24/19 18:41 Dose: 30 mg Documented by: OUMOU Metoclopramide HCl (Reglan) 10 mg IV NOW ONE Stop: 12/24/19 18:13 Last Admin: 12/24/19 18:44 Dose: 10 mg Documented by: OUMOU Vital Signs Vital signs: Vital Signs - 8 hr 12/24/19 19:30 12/24/19 20:24 Pulse Rate 84 94 H Respiratory Rate 18 Blood Pressure 124/59 L Blood Pressure [Left Arm] 129/58 L Pulse Oximetry 99 99 <Ivory Calloway MD - Last Filed: 12/25/19 03:26> Orders Ordered: ED Orders 12/24/19 18:52 Influenza A & B (PCR) Stat Discontinued Medications Diphenhydramine HCl (Benadryl) 25 mg IV NOW ONE Stop: 12/24/19 18:13 Last Admin: 12/24/19 18:42 Dose: 25 mg Documented by: OUMOU Sodium Chloride (Normal Saline 0.9%) 1,000 mls @ 1,000 mls/hr IV BOLUS ONE Stop: 12/24/19 19:11 Last Infusion: 12/24/19 19:41 Dose: 0 mls/hr Documented by: Admin: 12/24/19 18:38 Dose: 1,000 mls/hr Documented by: OUMOU Ketorolac Tromethamine (Toradol) 30 mg IV NOW ONE Stop: 12/24/19 18:13 Last Admin: 12/24/19 18:41 Dose: 30 mg Documented by: OUMOU Metoclopramide HCl (Reglan) 10 mg IV NOW ONE Stop: 12/24/19 18:13 Last Admin: 12/24/19 18:44 Dose: 10 mg Documented by: OUMOU Vital Signs Vital signs: Vital Signs - 8 hr 12/24/19 19:30 12/24/19 20:24 Pulse Rate 84 94 H Respiratory Rate 18 Blood Pressure 124/59 L Blood Pressure [Left Arm] 129/58 L Pulse Oximetry 99 99 MDM - Fever <NICKI Nguyen - Last Filed: 12/24/19 20:28> Medical Records Attestation: I reviewed the patient's medical records. Lab Data Attestation: I reviewed the patient's lab results. Result diagrams: 12/24/19 17:30 12/24/19 17:30 Labs: Lab Results 12/24/19 12/24/19 12/24/19 Range/Units 17:30 17:30 17:30 WBC 9.2 (4.5-11.0) X10^3/uL RBC 4.12 (4.0-5.2) X10^6/uL Hgb 11.5 L (12.0-16.0) g/dL Hct 34.5 L (36-46) % MCV 83.6 (80-100) fL MCH 27.8 (26-34) PG MCHC 33.2 (30-36) % RDW 15.2 H (11.6-14.8) % Plt Count 423 H (150-400) X10^3/uL Neut % (Auto) 68.5 (50-75) % Lymph % (Auto) 23.6 L (25-40) % [place] % (Auto) 6.4 (3-14) % Eos % (Auto) 0.3 L (2-4) % Baso % (Auto) 1.2 (0-2) % Neut # (Auto) 6300 (1964-4899) /uL Lymph # (Auto) 2200 (6085-0798) /uL [place] # (Auto) 600 (0-900) /uL Eos # (Auto) 0 (0-450) /uL Baso # (Auto) 100 (0-100) /uL PT 13.2 H (10.1-12.7) SECONDS INR 1.1 (0.9-1.3) APTT 36 (26.4-36.2) SECONDS Sodium (137-145) mmol/L Potassium (3.4-5.1) mmol/L Chloride (98-107) mmol/L Carbon Dioxide (22-32) mmol/L BUN (7-17) mg/dL Creatinine (0.52-1.04) mg/dL Estimated GFR (>60) mL/min BUN/Creatinine Ratio (6-22) Glucose (70-100) mg/dL Lactate (0.7-2.1) mmol/L Calcium (8.4-10.2) mg/dL Total Bilirubin (0.2-1.3) mg/dL AST (14-36) IU/L ALT (<35) IU/L Alkaline Phosphatase (38-126) U/L Total Protein (6.3-8.2) g/dL Albumin (3.5-5.0) g/dL Globulin (1.7-4.1) g/dL Albumin/Globulin Ratio (1.0-2.8) Lipase (23-300) U/L Procalcitonin < 0.05 (<0.5) ng/mL Influenza A (RT-PCR) (NEGATIVE) Influenza B (RT-PCR) (NEGATIVE) 12/24/19 12/24/19 12/24/19 Range/Units 17:30 17:30 18:52 WBC (4.5-11.0) X10^3/uL RBC (4.0-5.2) X10^6/uL Hgb (12.0-16.0) g/dL Hct (36-46) % MCV (80-100) fL MCH (26-34) PG MCHC (30-36) % RDW (11.6-14.8) % Plt Count (150-400) X10^3/uL Neut % (Auto) (50-75) % Lymph % (Auto) (25-40) % [place] % (Auto) (3-14) % Eos % (Auto) (2-4) % Baso % (Auto) (0-2) % Neut # (Auto) (6000-9133) /uL Lymph # (Auto) (9337-4342) /uL [place] # (Auto) (0-900) /uL Eos # (Auto) (0-450) /uL Baso # (Auto) (0-100) /uL PT (10.1-12.7) SECONDS INR (0.9-1.3) APTT (26.4-36.2) SECONDS Sodium 137 (137-145) mmol/L Potassium 4.1 (3.4-5.1) mmol/L Chloride 101 (98-107) mmol/L Carbon Dioxide 25 (22-32) mmol/L BUN 6 L (7-17) mg/dL Creatinine 0.90 (0.52-1.04) mg/dL Estimated GFR > 60.0 (>60) mL/min BUN/Creatinine Ratio 6.7 (6-22) Glucose 107 H (70-100) mg/dL Lactate 1.1 (0.7-2.1) mmol/L Calcium 9.3 (8.4-10.2) mg/dL Total Bilirubin 2.0 H (0.2-1.3) mg/dL AST 28 (14-36) IU/L ALT 20 (<35) IU/L Alkaline Phosphatase 123 (38-126) U/L Total Protein 8.5 H (6.3-8.2) g/dL Albumin 4.6 (3.5-5.0) g/dL Globulin 3.9 (1.7-4.1) g/dL Albumin/Globulin Ratio 1.2 (1.0-2.8) Lipase 17 L (23-300) U/L Procalcitonin (<0.5) ng/mL Influenza A (RT-PCR) Flu a negative (NEGATIVE) Influenza B (RT-PCR) Flu b negative (NEGATIVE) MDM Narrative Medical decision making narrative: 29-year-old female who was recently treated for urinary tract infection and possible vulvar cellulitis yesterday in the emergency department with Bactrim. She has had 3 doses and developed migrainous like symptoms. Patient does not have a history of severe migraines. She continued to have increasing fatigue and night sweats. Labs are non-remarkable, patient is hemodynamically stable, afebrile, non tachycardia, no signs of sepsis. There is an increased suspicion for a migraine due to light sensitivity, photophobia, and description headache. Patient's neuro exam is intact, headache completely resolved after administration of medications, thus less likely cranial etiology and there is no reports of trauma or significant risk factors. This may be a reaction to the Bactrim as the symptoms started a few hours after administration. Examinations shows possible signs of mild and or resolving vulvar cellulitis without concerns for an abscess due to lack of fluctuation. After discussions about benefits and risks, patient was switched to cephalexin, increased dose was administered to treat for cellulitis. Less likely renal calculi due to lack flank pain, less likely pyelonephritis due to lack of CVA tenderness, nausea, vomiting, and reports of resolving dysuria. <Ivory Calloway MD - Last Filed: 12/25/19 03:26> Lab Data Labs: Lab Results 12/24/19 12/24/19 12/24/19 Range/Units 17:30 17:30 17:30 WBC 9.2 (4.5-11.0) X10^3/uL RBC 4.12 (4.0-5.2) X10^6/uL Hgb 11.5 L (12.0-16.0) g/dL Hct 34.5 L (36-46) % MCV 83.6 (80-100) fL MCH 27.8 (26-34) PG MCHC 33.2 (30-36) % RDW 15.2 H (11.6-14.8) % Plt Count 423 H (150-400) X10^3/uL Neut % (Auto) 68.5 (50-75) % Lymph % (Auto) 23.6 L (25-40) % [place] % (Auto) 6.4 (3-14) % Eos % (Auto) 0.3 L (2-4) % Baso % (Auto) 1.2 (0-2) % Neut # (Auto) 6300 (1446-1232) /uL Lymph # (Auto) 2200 (5353-4509) /uL [place] # (Auto) 600 (0-900) /uL Eos # (Auto) 0 (0-450) /uL Baso # (Auto) 100 (0-100) /uL PT 13.2 H (10.1-12.7) SECONDS INR 1.1 (0.9-1.3) APTT 36 (26.4-36.2) SECONDS Sodium (137-145) mmol/L Potassium (3.4-5.1) mmol/L Chloride (98-107) mmol/L Carbon Dioxide (22-32) mmol/L BUN (7-17) mg/dL Creatinine (0.52-1.04) mg/dL Estimated GFR (>60) mL/min BUN/Creatinine Ratio (6-22) Glucose (70-100) mg/dL Lactate (0.7-2.1) mmol/L Calcium (8.4-10.2) mg/dL Total Bilirubin (0.2-1.3) mg/dL AST (14-36) IU/L ALT (<35) IU/L Alkaline Phosphatase (38-126) U/L Total Protein (6.3-8.2) g/dL Albumin (3.5-5.0) g/dL Globulin (1.7-4.1) g/dL Albumin/Globulin Ratio (1.0-2.8) Lipase (23-300) U/L Procalcitonin < 0.05 (<0.5) ng/mL Influenza A (RT-PCR) (NEGATIVE) Influenza B (RT-PCR) (NEGATIVE) 12/24/19 12/24/19 12/24/19 Range/Units 17:30 17:30 18:52 WBC (4.5-11.0) X10^3/uL RBC (4.0-5.2) X10^6/uL Hgb (12.0-16.0) g/dL Hct (36-46) % MCV (80-100) fL MCH (26-34) PG MCHC (30-36) % RDW (11.6-14.8) % Plt Count (150-400) X10^3/uL Neut % (Auto) (50-75) % Lymph % (Auto) (25-40) % [place] % (Auto) (3-14) % Eos % (Auto) (2-4) % Baso % (Auto) (0-2) % Neut # (Auto) (7949-3779) /uL Lymph # (Auto) (1667-5259) /uL [place] # (Auto) (0-900) /uL Eos # (Auto) (0-450) /uL Baso # (Auto) (0-100) /uL PT (10.1-12.7) SECONDS INR (0.9-1.3) APTT (26.4-36.2) SECONDS Sodium 137 (137-145) mmol/L Potassium 4.1 (3.4-5.1) mmol/L Chloride 101 (98-107) mmol/L Carbon Dioxide 25 (22-32) mmol/L BUN 6 L (7-17) mg/dL Creatinine 0.90 (0.52-1.04) mg/dL Estimated GFR > 60.0 (>60) mL/min BUN/Creatinine Ratio 6.7 (6-22) Glucose 107 H (70-100) mg/dL Lactate 1.1 (0.7-2.1) mmol/L Calcium 9.3 (8.4-10.2) mg/dL Total Bilirubin 2.0 H (0.2-1.3) mg/dL AST 28 (14-36) IU/L ALT 20 (<35) IU/L Alkaline Phosphatase 123 (38-126) U/L Total Protein 8.5 H (6.3-8.2) g/dL Albumin 4.6 (3.5-5.0) g/dL Globulin 3.9 (1.7-4.1) g/dL Albumin/Globulin Ratio 1.2 (1.0-2.8) Lipase 17 L (23-300) U/L Procalcitonin (<0.5) ng/mL Influenza A (RT-PCR) Flu a negative (NEGATIVE) Influenza B (RT-PCR) Flu b negative (NEGATIVE) Discharge Plan Departure Patient Disposition: Home Clinical Impression: UTI (urinary tract infection) Qualifiers: Urinary tract infection type: acute cystitis Hematuria presence: without hematuria Qualified Code(s): N30.00 - Acute cystitis without hematuria Discharge Date/Time: 12/24/19 20:25 Activity Restrictions/Additional Instructions: Thank you for entrusting me with your care today. As discussed, your labs are non-remarkable. Your urine shows you may still have a urinary tract infection. I am unsure exactly what is causing your headaches, but it is possible it may be due to a reaction from the antibiotics. I have switched your antibiotics, this prescription was sent to [facility] in [place]. Please follow up with your primary care provider tomorrow or on Saturday for re-evaluation. Return emergency department for any new or worsening symptoms such as worsening pain, high fevers, uncontrollable vomiting, increased redness, or any concerns. Prescriptions: New cephalexin 500 mg capsule 500 mg PO QID 7 Days Qty: 28 RF: 0 No Action oxycodone-acetaminophen 5-325 mg Tablet 1 tab PO Q4HR PRN (Reason: Pain, Moderate (4-6)) Qty: 40 RF: 0 docusate sodium [Colace] 100 mg capsule 100 mg PO BID Qty: 60 RF: 0 naproxen 500 mg tablet,delayed release (DR/EC) 500 mg PO Q12H Qty: 20 RF: 0 sulfamethoxazole-trimethoprim [Bactrim DS] 800-160 mg tablet 1 tab PO BID 7 Days Qty: 14 RF: 0
[2019-12-24 18:20] LABS: Procalcitonin < 0.05 ng/mL (<0.5)
[2019-12-24] MEDS: SODIUM CHLORIDE 0.9% 1,000 ML 1000 ML IV (18:38)
[2019-12-24] MEDS: KETOROLAC 60 MG/2 ML VIAL 30 MG IV (18:41)
[2019-12-24] MEDS: diphenhydrAMINE 50 MG/ML VIAL 25 MG IV (18:42)
[2019-12-24] MEDS: METOCLOPRAMIDE 10 MG/2 ML INJ IV (18:44)
[2019-12-24 19:00] VITALS: BP 125/58; PULSE 83; RESP 16; O2SAT 98
[2019-12-24 19:29] LABS: Influenza A - CEPHEID Flu A NEGATIVE (NEGATIVE); Influenza B - CEPHEID Flu B NEGATIVE (NEGATIVE)
[2019-12-24 19:30] VITALS: BP 129/58; PULSE 84; RESP 18; O2SAT 99
[2019-12-24 20:24] VITALS: BP 124/59; PULSE 94; O2SAT 99
== END 2019-12-24 20:25 | disposition home or self-care (01) ==
PROVIDERS: Emergency Medicine; Emergency Provider Nurse Practitioner
DX: N30.00 Acute cystitis without hematuria (principal)
CPT/HCPCS: 36415; 71045; 80053; 83605; 83690; 84145; 85025; 85610; 85730; 87040; 87502; 93005; 96361; 96374; 96375; 99284; J1200; J1885; J2765

== ENCOUNTER 2020-08-19 21:10 | Emergency (ER) | payer OTHER, SELFPAY ==
[2019-03-10 21:09] VITALS: BMI 29.0
[2020-08-19 21:21] VITALS: BP 101/50; PULSE 62; RESP 18; TEMP 37.1; O2SAT 100; BMI 25.9
--- NOTE | 2020-08-19 21:24 | DI.RAD.S_ITS ---
PROCEDURE: XR CHEST 1V INDICATIONS: suspected sepsis TECHNIQUE: One view of the chest was acquired. COMPARISON: [facility], CR, XR CHEST 1V, 12/24/2019, 17:11. FINDINGS: Surgical changes and devices: None. Lungs and pleura: Lungs are clear. No pleural effusions or pneumothorax. Mediastinum: Mediastinal contours appear normal. Heart size is normal. Bones and chest wall: No suspicious bony lesions. Overlying soft tissues appear unremarkable. IMPRESSION: Normal for age, source of current suspected sepsis symptoms is not seen. Dictated by: Flaco Beth M.D. on 08/19/2020 at 21:43 Approved by: Flaco Beth M.D. on 08/19/2020 at 21:44
[2020-08-19 21:43] LABS: COVID19 -Nasal RAPID Negative (Negative)
[2020-08-19 21:50] LABS: Add Manual Diff / Slide Review NO; Basophils Absolute Auto 100 /uL (0-100); Eosinophils Absolute Auto 100 /uL (0-450); Eosinophils Percent Auto 0.7 % (2-4); Hematocrit 37.8 % (36-46); Hemoglobin 12.2 g/dL (12.0-16.0); Lymphocytes Absolute Auto 4100 /uL (1100-4500); Mean Corpuscular HGB Conc 32.2 % (30-36); Mean Corpuscular Hemoglobin 26.6 PG (26-34); Mean Corpuscular Volume 82.5 fL (80-100); Monocytes Absolute Auto 400 /uL (0-900); Monocytes Percent Auto 5.9 % (3-14); Neutrophils Absolute Auto 2900 /uL (1500-7000); Neutrophils Percent Auto 38.4 % (50-75); Platelet Count 403 X10^3/uL (150-400); Red Blood Cell Count 4.58 X10^6/uL (4.0-5.2); Red Cell Distribution Width 14.8 % (11.6-14.8); White Blood Cell Count 7.6 X10^3/uL (4.5-11.0)
[2020-08-19 21:56] LABS: INR 1.1 (0.9-1.3); Prothrombin Time 12.7 SECONDS (10.1-12.7)
[2020-08-19] MEDS: SODIUM CHLORIDE 0.9% 1,000 ML 1000 ML IV (21:58)
[2020-08-19 21:59] VITALS: BP 101/55; PULSE 88; RESP 18; O2SAT 98
[2020-08-19 21:59] LABS: PTT Partial Thromboplastin Tim 34 SECONDS (26.4-36.2)
--- NOTE | 2020-08-19 21:59 | ED_ITS ---
HPI - URI/Sore Throat General Chief Complaint: Upper Respiratory Symptoms Stated Complaint: coughing sob headache Time Seen by Provider: 08/19/20 21:48 Source: patient Mode of arrival: Ambulatory Limitations: no limitations History of Present Illness HPI Narrative: Patient complains 2 days fever chills sore throat dry cough nasal congestion hoarse voice and short of breath. Denies any sick contacts. In the past 2 years has been seen here. Negative for mono, negative for strep and today negative for COVID, negative for fluid in the past. History of laryngitis. Does not smoke. No history asthma. MD Complaint: fever, cough, sore throat, rhinorrhea and nasal congestion Related Data Previous Rx's Medication Instructions Recorded docusate sodium [Colace] 100 mg PO BID #60 cap 03/11/19 oxycodone-acetaminophen 1 tab PO Q4HR PRN #40 tab 03/11/19 naproxen 500 mg PO Q12H #20 tab 09/17/19 benzonatate 100 mg PO TID PRN #20 cap 08/19/20 Allergies Allergy/AdvReac Type Severity Reaction Status Date / Time No Known Drug Allergies Allergy Verified 12/24/19 16:56 Review of Systems Review of Systems Narrative: GENERAL: Complains chills, fatigue, malaise, fever, sweats. HEENT: Denies sinus pain, complains of ear pain, sore throat, denies difficulty swallowing RESPIRATORY: Complains dyspnea, complains dry cough CARDIOVASCULAR: Denies chest pain, palpitations, edema, GASTROINTESTINAL: Denies nausea, vomiting, abdominal pain, diarrhea, constipation, melena. : Denies dysuria, frequency, hematuria MUSCULOSKELETAL: denies muscle or bony pain SKIN: Denies rash, skin lesions NEUROLOGIC: Denies weakness, headache, numbness, change in speech, confusion PSYCHIATRIC: No SI or HI or hallucinations ROS Unobtainable: All systems reviewed & are unremarkable except as noted in HPI and below Patient History Medical History Healthy adult (Acute) Surgical History History of appendectomy (Acute) History of (Chronic) History of umbilical hernia repair (Chronic) Hx of cholecystectomy (Resolved) Family History Father Hypertension Mother Gallstones Grandmother Stroke Social History marital status: household members: significant other, family and children occupational status: employed Smoking Status: Never smoker Smoking Status: Never smoker alcohol intake frequency: holidays/special occasions only Substance Use Type: does not use Exam Narrative Exam Narrative: GENERAL: patient appears stated age. Well-nourished, well- developed patient, in no distress, not toxic not dyspneic, has hoarse voice HEAD: Normocephalic. EYES: Pupils equal round and reactive. No scleral icterus. No injection no discharge ENT: Mucous membranes moist. No drooling no tongue elevation no trismus no malocclusion, no pharyngeal erythema edema or exudates. NECK: Trachea midline. Non tender, mild submandibular tenderness. CARDIOVASCULAR: Regular rate and rhythm without murmurs, gallops, or rubs. RESPIRATORY: Clear to auscultation. Breath sounds equal bilaterally. No wheezes, rales, or rhonchi. Speaks full sentences GASTROINTESTINAL: Abdomen soft, non-tender, nondistended. EXTREMITIES: No gross deformities. BACK: Nontender without deformity or crepitance. No flank tenderness. NEURO: AOx4. SKIN: Warm and dry PSYCH: Not anxious, is cooperative Initial Vital Signs Initial Vital Signs: Vital Signs Temperature 98.8 F 08/19/20 21:21 Pulse Rate 62 08/19/20 21:21 Respiratory Rate 18 08/19/20 21:21 Blood Pressure 101/50 L 08/19/20 21:21 Pulse Oximetry 100 08/19/20 21:21 Course Course Course Narrative: Not toxic during course of stay or at discharge. Orders Ordered: ED Orders 08/19/20 21:21 COVID19 -ED/INPAT/OR/L&D Stat 08/19/20 21:24 XR chest 1V Stat 08/19/20 21:35 Complete Blood Count AUTO DIFF Stat Comprehensive Metabolic Panel Stat Lactate (Lactic Acid) Stat Lipase Stat Partial Thromboplastin Time Stat Test Serum,Qual Stat Procalcitonin Stat Prothrombin Time INR Stat 08/19/20 22:10 Respiratory Panel (Film Array) Stat Discontinued Medications Albuterol (Ventolin Hfa Prepack) 1 box MISC SEEINSTR ONE Stop: 08/19/20 23:04 Last Admin: 08/19/20 23:15 Dose: 1 box Documented by: WILLIAN Benzonatate (Tessalrosalia Perlphu) 100 mg PO NOW ONE Stop: 08/19/20 23:04 Last Admin: 08/19/20 23:25 Dose: 100 mg Documented by: ANIA Sodium Chloride (Normal Saline 0.9%) 1,000 mls @ 1,000 mls/hr IV BOLUS ONE Stop: 08/19/20 22:23 Last Infusion: 08/19/20 23:06 Dose: 0 mls/hr Documented by: Admin: 08/19/20 21:58 Dose: 1,000 mls/hr Documented by: ANIA Sodium Chloride (Normal Saline 0.9%) 1,000 mls @ 1,000 mls/hr IV BOLUS ONE Stop: 08/20/20 00:02 Last Admin: 08/19/20 23:11 Dose: Not Given Documented by: ANIA Reevaluation(s) Reevaluation #1: Reviewed results with patient. Not toxic at time of discharge. Time: 23:43 Vital Signs Vital signs: Vital Signs - 8 hr 08/19/20 21:21 08/19/20 21:59 08/19/20 23:53 Temperature 98.8 F Pulse Rate 62 88 52 L Respiratory Rate 18 18 18 Blood Pressure 101/50 L 101/55 L 130/77 Pulse Oximetry 100 98 100 MDM - URI/Sore Throat Differential Diagnosis Differential diagnosis: Likely upper respiratory infection, viral infection, bronchitis, influenza and pharyngitis Medical Records Attestation: I reviewed the patient's medical records. Lab Data Attestation: I reviewed the patient's lab results. Result diagrams: 08/19/20 21:35 08/19/20 21:35 Labs: Lab Results 08/19/20 08/19/20 08/19/20 Range/Units 21:21 21:35 21:35 WBC 7.6 (4.5-11.0) X10^3/uL RBC 4.58 (4.0-5.2) X10^6/uL Hgb 12.2 (12.0-16.0) g/dL Hct 37.8 (36-46) % MCV 82.5 (80-100) fL MCH 26.6 (26-34) PG MCHC 32.2 (30-36) % RDW 14.8 (11.6-14.8) % Plt Count 403 H (150-400) X10^3/uL Neut % (Auto) 38.4 L (50-75) % Lymph % (Auto) 54.0 H (25-40) % Smyth % (Auto) 5.9 (3-14) % Eos % (Auto) 0.7 L (2-4) % Baso % (Auto) 1.0 (0-2) % Neut # (Auto) 2900 (2600-4828) /uL Lymph # (Auto) 4100 (2732-4832) /uL Smyth # (Auto) 400 (0-900) /uL Eos # (Auto) 100 (0-450) /uL Baso # (Auto) 100 (0-100) /uL PT 12.7 (10.1-12.7) SECONDS INR 1.1 (0.9-1.3) APTT 34 D (26.4-36.2) SECONDS Sodium (137-145) mmol/L Potassium (3.4-5.1) mmol/L Chloride (98-107) mmol/L Carbon Dioxide (22-32) mmol/L BUN (7-17) mg/dL Creatinine (0.52-1.04) mg/dL Estimated GFR (>60) mL/min BUN/Creatinine Ratio (6-22) Glucose (70-100) mg/dL Lactate (0.7-2.1) mmol/L Calcium (8.4-10.2) mg/dL Total Bilirubin (0.2-1.3) mg/dL AST (14-36) IU/L ALT (<35) IU/L Alkaline Phosphatase (38-126) U/L Total Protein (6.3-8.2) g/dL Albumin (3.5-5.0) g/dL Globulin (1.7-4.1) g/dL Albumin/Globulin Ratio (1.0-2.8) Lipase (23-300) U/L Procalcitonin (<0.5) ng/mL Serum , Qual (Negative) Chlamy pneumoniae PCR (Not Detect) Adenovirus (PCR) (Not Detect) B.parapertussis DNA PCR (Not Detect) Coronavirus OC43 (PCR) (Not Detect) Coronavirus HKU1 (PCR) (Not Detect) Coronavirus 229E (PCR) (Not Detect) COVID-19 PCR Negative (Negative) Coronavirus NL63 (PCR) (Not Detect) Human Metapneumovir PCR (Not Detect) Influenza Type A (PCR) (Not Detect) Influenza Type B (PCR) (Not Detect) M. pneumoniae (PCR) (Not Detect) Parainfluenza 1 (PCR) (Not Detect) Parainfluenza 2 (PCR) (Not Detect) Parainfluenza 3 (PCR) (Not Detect) Parainfluenza 4 (PCR) (Not Detect) RSV (PCR) (Not Detect) Entero/Rhino (PCR) (Not Detect) 08/19/20 08/19/20 08/19/20 Range/Units 21:35 21:35 21:35 WBC (4.5-11.0) X10^3/uL RBC (4.0-5.2) X10^6/uL Hgb (12.0-16.0) g/dL Hct (36-46) % MCV (80-100) fL MCH (26-34) PG MCHC (30-36) % RDW (11.6-14.8) % Plt Count (150-400) X10^3/uL Neut % (Auto) (50-75) % Lymph % (Auto) (25-40) % Smyth % (Auto) (3-14) % Eos % (Auto) (2-4) % Baso % (Auto) (0-2) % Neut # (Auto) (7643-1632) /uL Lymph # (Auto) (7994-1812) /uL Smyth # (Auto) (0-900) /uL Eos # (Auto) (0-450) /uL Baso # (Auto) (0-100) /uL PT (10.1-12.7) SECONDS INR (0.9-1.3) APTT (26.4-36.2) SECONDS Sodium 138 (137-145) mmol/L Potassium 3.8 (3.4-5.1) mmol/L Chloride 101 (98-107) mmol/L Carbon Dioxide 29 (22-32) mmol/L BUN 5 L (7-17) mg/dL Creatinine 0.70 (0.52-1.04) mg/dL Estimated GFR > 60.0 (>60) mL/min BUN/Creatinine Ratio 7.1 (6-22) Glucose 89 (70-100) mg/dL Lactate 0.9 (0.7-2.1) mmol/L Calcium 9.2 (8.4-10.2) mg/dL Total Bilirubin 0.6 (0.2-1.3) mg/dL AST 22 (14-36) IU/L ALT 15 (<35) IU/L Alkaline Phosphatase 141 H (38-126) U/L Total Protein 8.7 H (6.3-8.2) g/dL Albumin 4.6 (3.5-5.0) g/dL Globulin 4.1 (1.7-4.1) g/dL Albumin/Globulin Ratio 1.1 (1.0-2.8) Lipase 66 (23-300) U/L Procalcitonin < 0.05 (<0.5) ng/mL Serum , Qual (Negative) Chlamy pneumoniae PCR (Not Detect) Adenovirus (PCR) (Not Detect) B.parapertussis DNA PCR (Not Detect) Coronavirus OC43 (PCR) (Not Detect) Coronavirus HKU1 (PCR) (Not Detect) Coronavirus 229E (PCR) (Not Detect) COVID-19 PCR (Negative) Coronavirus NL63 (PCR) (Not Detect) Human Metapneumovir PCR (Not Detect) Influenza Type A (PCR) (Not Detect) Influenza Type B (PCR) (Not Detect) M. pneumoniae (PCR) (Not Detect) Parainfluenza 1 (PCR) (Not Detect) Parainfluenza 2 (PCR) (Not Detect) Parainfluenza 3 (PCR) (Not Detect) Parainfluenza 4 (PCR) (Not Detect) RSV (PCR) (Not Detect) Entero/Rhino (PCR) (Not Detect) 08/19/20 08/19/20 Range/Units 21:35 22:10 WBC (4.5-11.0) X10^3/uL RBC (4.0-5.2) X10^6/uL Hgb (12.0-16.0) g/dL Hct (36-46) % MCV (80-100) fL MCH (26-34) PG MCHC (30-36) % RDW (11.6-14.8) % Plt Count (150-400) X10^3/uL Neut % (Auto) (50-75) % Lymph % (Auto) (25-40) % Smyth % (Auto) (3-14) % Eos % (Auto) (2-4) % Baso % (Auto) (0-2) % Neut # (Auto) (9108-7308) /uL Lymph # (Auto) (9233-6015) /uL Smyth # (Auto) (0-900) /uL Eos # (Auto) (0-450) /uL Baso # (Auto) (0-100) /uL PT (10.1-12.7) SECONDS INR (0.9-1.3) APTT (26.4-36.2) SECONDS Sodium (137-145) mmol/L Potassium (3.4-5.1) mmol/L Chloride (98-107) mmol/L Carbon Dioxide (22-32) mmol/L BUN (7-17) mg/dL Creatinine (0.52-1.04) mg/dL Estimated GFR (>60) mL/min BUN/Creatinine Ratio (6-22) Glucose (70-100) mg/dL Lactate (0.7-2.1) mmol/L Calcium (8.4-10.2) mg/dL Total Bilirubin (0.2-1.3) mg/dL AST (14-36) IU/L ALT (<35) IU/L Alkaline Phosphatase (38-126) U/L Total Protein (6.3-8.2) g/dL Albumin (3.5-5.0) g/dL Globulin (1.7-4.1) g/dL Albumin/Globulin Ratio (1.0-2.8) Lipase (23-300) U/L Procalcitonin (<0.5) ng/mL Serum , Qual Negative (Negative) Chlamy pneumoniae PCR Not detected (Not Detect) Adenovirus (PCR) Not detected (Not Detect) B.parapertussis DNA PCR Not detected (Not Detect) Coronavirus OC43 (PCR) Not detected (Not Detect) Coronavirus HKU1 (PCR) Not detected (Not Detect) Coronavirus 229E (PCR) Not detected (Not Detect) COVID-19 PCR (Negative) Coronavirus NL63 (PCR) Not detected (Not Detect) Human Metapneumovir PCR Not detected (Not Detect) Influenza Type A (PCR) Not detected (Not Detect) Influenza Type B (PCR) Not detected (Not Detect) M. pneumoniae (PCR) Not detected (Not Detect) Parainfluenza 1 (PCR) Not detected (Not Detect) Parainfluenza 2 (PCR) Not detected (Not Detect) Parainfluenza 3 (PCR) Not detected (Not Detect) Parainfluenza 4 (PCR) Not detected (Not Detect) RSV (PCR) Not detected (Not Detect) Entero/Rhino (PCR) Not detected (Not Detect) Point of Care Testing Rapid Strep A Negative Imaging Data Chest x-ray: Radiologist's Impression: [address] [address] XRay Report Signed Patient: Constantino Coombs EMR#: [id number] : 1990Acct:[id number] Age/Sex: 29 / FDate of Service: 08/19/20 Loc: ED Accession Number: [id number] Procedure: XR chest 1V Ordering Provider: Philip Raman MD PROCEDURE: XR CHEST 1V INDICATIONS: suspected sepsis TECHNIQUE: One view of the chest was acquired. COMPARISON: [facility], , XR CHEST 1V, 12/24/2019, 17:11. FINDINGS: Surgical changes and devices: None. Lungs and pleura: Lungs are clear. No pleural effusions or pneumothorax. Mediastinum: Mediastinal contours appear normal. Heart size is normal. Bones and chest wall: No suspicious bony lesions. Overlying soft tissues sarita ear unremarkable. IMPRESSION: Normal for age, source of current suspected sepsis symptoms is not seen. Dictated by: Flaco Beth M.D. on 08/19/2020 at 21:43 Approved by: Flaco Beth M.D. on 08/19/2020 at 21:44 ECG Data Attestation: I personally reviewed and interpreted this ECG as follows: Interpretation: Sinus bradycardia rate 54 otherwise normal EKG, no ST elevation or depression MDM Narrative Medical decision making narrative: Appropriate for discharge home. Patient not toxic. Blood pressure noted on arrival on discharge. Patient at this time dizziness. No tachycardia. Not toxic or septic appearing Discharge Plan Departure Patient Disposition: Home Clinical Impression: Bronchitis Discharge Date/Time: 08/19/20 23:54 Instructions: DI for Acute Bronchitis Activity Restrictions/Additional Instructions: See family doctor next week for recheck. Drink plenty of fluids. Use inhaler 2 puffs every 4 6 hours as needed for cough. Return if worse or for any questions concerns. Prescription has been sent to your [facility] in [place]. Prescriptions: New benzonatate 100 mg capsule 100 mg PO TID PRN (Reason: cough) Qty: 20 RF: 0 No Action oxycodone-acetaminophen 5-325 mg Tablet 1 tab PO Q4HR PRN (Reason: Pain, Moderate (4-6)) Qty: 40 RF: 0 docusate sodium [Colace] 100 mg capsule 100 mg PO BID Qty: 60 RF: 0 naproxen 500 mg tablet,delayed release (DR/EC) 500 mg PO Q12H Qty: 20 RF: 0 Referrals: [facility] [Outside]
[2020-08-19 22:01] LABS: Lactate (Lactic Acid) 0.9 mmol/L (0.7-2.1)
[2020-08-19 22:02] LABS: Alanine Aminotransferase 15 IU/L (<35); Albumin 4.6 g/dL (3.5-5.0); Albumin Globulin Ratio 1.1 (1.0-2.8); Alkaline Phosphatase 141 U/L (38-126); Aspartate Aminotransferase 22 IU/L (14-36); BUN Creatinine Ratio 7.1 (6-22); Bilirubin Total 0.6 mg/dL (0.2-1.3); Blood Urea Nitrogen 5 mg/dL (7-17); Calcium 9.2 mg/dL (8.4-10.2); Carbon Dioxide 29 mmol/L (22-32); Chloride 101 mmol/L (98-107); Estimated Glomerular Filt Rate > 60.0 mL/min (>60); Globulin 4.1 g/dL (1.7-4.1); Glucose 89 mg/dL (70-100); HEMOLYSIS < 15 (0-50); Lipase 66 U/L (23-300); Potassium 3.8 mmol/L (3.4-5.1); Sodium 138 mmol/L (137-145); Total Protein 8.7 g/dL (6.3-8.2)
[2020-08-19 22:09] LABS: Pregnancy Test Serum,Qual Negative (Negative)
[2020-08-19 22:16] LABS: Procalcitonin < 0.05 ng/mL (<0.5)
[2020-08-19] MEDS: ALBUTEROL HFA PREPACK 1 BOX MISC (23:15)
[2020-08-19] MEDS: BENZONATATE 100 MG CAPSULE PO (23:25)
[2020-08-19 23:32] LABS: Adenovirus Not Detected (Not Detect); Bordetella pertussis Not Detected (Not Detect); Chlamydophila pneumoniae Not Detected (Not Detect); Coronavirus 229E Not Detected (Not Detect); Coronavirus HKU1 Not Detected (Not Detect); Coronavirus NL 63 Not Detected (Not Detect); Coronavirus OC43 Not Detected (Not Detect); Human Metapneumovirus Not Detected (Not Detect); Human Rhinovirus/Enterovirus Not Detected (Not Detect); Influenza A Not Detected (Not Detect); Influenza B Not Detected (Not Detect); Mycoplasma pneumoniae Not Detected (Not Detect); Parainfluenza Virus 1 Not Detected (Not Detect); Parainfluenza Virus 2 Not Detected (Not Detect); Parainfluenza Virus 3 Not Detected (Not Detect); Parainfluenza Virus 4 Not Detected (Not Detect); Respiratory Syncytial Virus Not Detected (Not Detect)
[2020-08-19 23:53] VITALS: BP 130/77; PULSE 52; RESP 18; O2SAT 100
== END 2020-08-19 23:54 | disposition home or self-care (01) ==
PROVIDERS: Emergency Provider Emergency Medicine
DX: J40 Bronchitis, not specified as acute or chronic (principal); R50.9 Fever, unspecified; R06.02 Shortness of breath; R05 Cough
CPT/HCPCS: 36415; 71045; 80053; 83605; 83690; 84145; 84703; 85025; 85610; 85730; 87633; 87635; 87880; 93005; 93010; 96360; 99284